=== PATIENT | male | born 1935 | race Caucasian/White ===

== ENCOUNTER → 2016-07-08 | Outpatient (CLI) | payer MEDICARE, BC ==
[~2016-07-08] MED LIST: AMLO10TA2 PO; ASPI-110 PO; CALC500C2 CHEW; CASO50TA2 PO; CLIN1CAP6 PO; ENZA40CA PO; FENT75DI T-DERMAL; FURO20TA PO; LANTINJ SQ; LIPI10TA PO; METO25TA3 PO; METO50TA PO; MORP15TA73 PO; MORP1TAB24 PO; NOVOINJ SQ; NOVOLOGP2 SQ; NOVORP2 SQ; OMEP20TA PO; OXYC15TA PO; OXYC1TAB36 PO; PROC10TA PO; WHEEMIS3; ZYTI250T PO; accucheck; needles; test strips; wheelchair
== END ==
LOC: PLAB 08:25
PROVIDERS: ATTEND Urology
DX: C61 Malignant neoplasm of prostate (principal)
CPT/HCPCS: 36415; 84153; 84403

== ENCOUNTER → 2016-07-20 | Day surgery (SDC) | payer MEDICARE, BC ==
[~2016-07-20] MED LIST changes: +ASPI81CH3 CHEW; +DOCU100C PO; +LACTATED RINGER'S 1,000 ML BAG IV ONE; +OXYC-396 PO; +POLY150C2 PO; +PROPOFOL 200 MG/20 ML AMP IV ONE
== END | disposition home or self-care (01) ==
LOC: ESDC 07:00
PROVIDERS: ATTEND Internal Medicine Gastroenterology
DX: K31.5 Obstruction of duodenum (principal); K44.9 Diaphragmatic hernia without obstruction or gangrene; K29.80 Duodenitis without bleeding; K29.70 Gastritis, unspecified, without bleeding; E11.9 Type 2 diabetes mellitus without complications; Z79.4 Long term (current) use of insulin
CPT/HCPCS: 00740; 43239; 43245; 82948; 88305; 88312; C1726; J3010; J7120

== ENCOUNTER → 2016-09-09 | Outpatient (CLI) | payer MEDICARE, BC ==
[~2016-09-09] MED LIST changes: +BACT800T5 PO; +CIPR250T52 PO; -LACTATED RINGER'S 1,000 ML BAG IV ONE; +PANT40TA3 PO; -PROPOFOL 200 MG/20 ML AMP IV ONE
== END ==
LOC: PLAB 09:06
PROVIDERS: ATTEND Urology
DX: C61 Malignant neoplasm of prostate (principal)
CPT/HCPCS: 36415; 84153

== ENCOUNTER 2016-12-08 20:09 | Inpatient (IN) | payer MEDICARE, BC ==
[~2016-12-08] VITALS: Ht 188 cm; Wt 122.5 kg
[2016-12-08] VITALS (9 sets, daily range): BP systolic 108–145; BP diastolic 61–76; PULSE 86–125; RESP 18–20; TEMP 99.2–99.9; O2SAT 2–96
[~2016-12-08 20:09] MED LIST changes: -ASPI81CH3 CHEW; -BACT800T5 PO; -CALC500C2 CHEW; -CIPR250T52 PO; -DOCU100C PO; -ENZA40CA PO; -METO25TA3 PO; -MORP15TA73 PO; -MORP1TAB24 PO; -OXYC-396 PO; -OXYC1TAB36 PO; -PANT40TA3 PO; -POLY150C2 PO; -PROC10TA PO
[2016-12-08] MEDS ORDERED: SODIUM CHLORIDE 0.9% FLUSH 10 ML FLUSH IVF PRN ×4 (20:30→22:30)
[2016-12-08] MEDS ORDERED: DILTIAZEM HCL 25 MG/5 ML VIAL IV ONE (21:00)
[2016-12-08] MEDS ORDERED: ACETAMINOPHEN 325 MG TAB PO ONE (21:00)
[2016-12-08 21:12] LABS: AUTOMATED NEUTROPHIL # 9.6 TH/MM3 (1.8-7.7); BASOPHIL # 0.4 TH/MM3 (0-0.2); BASOPHIL % 3.9 % (0.0-2.0); EOSINOPHIL % 0.2 % (0.0-4.0); LYMPH % 4.1 % (9.0-44.0); LYMPHOCYTE # 0.5 TH/MM3 (1.0-4.8); MEAN CELL VOLUME 68.9 FL (80.0-100.0); MEAN CORPUSCULAR HEMOGLOBIN 21.9 PG (27.0-34.0); MEAN CORPUSCULAR HGB CONC 31.8 % (32.0-36.0); MONO % 7.5 % (0.0-8.0); NEUT % 84.3 % (16.0-70.0); PLATELET COUNT 318 TH/MM3 (150-450); RED BLOOD COUNT 4.34 MIL/MM3 (4.50-5.90); RED CELL DISTRIBUTION WIDTH 17.4 % (11.6-17.2); WHITE BLOOD COUNT 11.3 TH/MM3 (4.0-11.0)
[2016-12-08 21:16] LABS: CHLORIDE 102 MEQ/L (98-107); HEMO FLAGS AUTO DIFF; SODIUM (NA) 138 MEQ/L (136-145)
[2016-12-08 21:24] LABS: APTT (PATIENT) 35.5 SEC (24.3-30.1); INTERNATIONAL NORMALIZED RATIO 1.3 RATIO; PROTHROMBIN TIME - PATIENT 14.6 SEC (9.8-11.6)
[2016-12-08 21:27] LABS: ALKALINE PHOSPHATASE 349 U/L (45-117); ALT (GPT) 9 U/L (12-78); ANION GAP 13 MEQ/L (5-15); AST (GOT) 31 U/L (15-37); BLOOD UREA NITROGEN 25 MG/DL (7-18); GLOMERULAR FILTRATION RATE 39 ML/MIN (>89); MAGNESIUM 1.5 MG/DL (1.5-2.5); TOTAL BILIRUBIN ADULT 0.4 MG/DL (0.2-1.0)
[2016-12-08 21:28] LABS: CREATINE KINASE 69 U/L (39-308)
[2016-12-08] MEDS ORDERED: MORP1TAB24 PO (21:40)
[2016-12-08] MEDS ORDERED: OXYC1TAB36 PO (21:40)
[2016-12-08] MEDS ORDERED: PROC10TA PO (21:40)
[2016-12-08] MEDS ORDERED: METO25TA3 PO (21:40)
[2016-12-08] MEDS: SODIUM CHLOR 0.9% 1000 ML INJ 1,000 ML IV SCH (21:42)
[2016-12-08 21:45] LABS: OVALOCYTES 1+ (NORMAL); SCAN/DIFF AUTO DIFF CONFIRMED; TEARDROP RBCS 1+ (NORMAL)
[2016-12-08] MEDS ORDERED: CALC500C2 CHEW (21:52)
[2016-12-08] MEDS ORDERED: ENZA40CA PO (21:52)
--- NOTE | 2016-12-08 21:54 | PD ---
HPI Chief Complaint: Fall Time Seen by Provider: 20:23 Travel History International Travel<30 days: No Contact w/Intl Traveler<30days: No Traveled to known affect area: No History of Present Illness HPI 81-year-old male presents to the emergency department from home by EMS transport for evaluation of generalized weakness with fall. 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 Patient has previously been under the care of Dr. Lay and was on Lupron therapy however appeared to feel therapy or recently was put under the care of oncologist Dr. Marcos who states that patient is not a candidate for chemotherapy; Patient is taking Xtandi and Casadex. and patient had discussed hospice but has not yet been admitted to the service. notes that patient is increasingly weak such that more recently she has had to assist him with lifting of his right leg to help him to get into bed over the past few days. Patient uses a walker at all times. Today patient was up out of bed to go to the bathroom and transferring from the walker to using a piece of furniture to support him when his legs gave way causing him to fall to the floor between the wall and the bed. Patient was unable to get up with attempt at assistance or on his own therefore far rescue was called to help him get up off the floor. Patient did not hit his head did not injure his neck or back stating he has no spine pain but did note that he had some bruising to the back area which she states is nontender. Patient did not injure his upper or lower extremities. Patient denies any chest pain palpitations rib pain shortness of breath pleuritic pain or abdominal pain. Patient reports that he is unable to lift his right leg at this time due to the worsening weakness over the past few days and specifically today it is only minimally able to lift his left lower extremity. Patient does not complain of new paresthesias to the lower extremities has not had any bladder or bowel dysfunction and denies saddle anesthesia as well as denies any low back pain. Patient's overall discomfort is rated as 0/10. Patient and spouse also deny any recent febrile illness headache visual disturbance sinus pressure drainage sore throat earache neck pain cough congestion phlegm production shortness of breath chest pain abdominal pain nausea vomiting diarrhea dysuria frequency urgency decreased urine output joint pain swelling or skin rash. Patient does not take any blood thinning agents. Patient reports that he has noticed increasing weakness 3 weeks since recent change in medication but cannot recall which medication was changed; reports stopped Zytiga and started Xtandi. PFSH Past Medical History Narrative Medical Basal cell carcinoma PAD/claudication diabetes tremor vertigo basal cell carcinoma skin*arthritis for obesity and diabetes with diabetic neuropathy atrial fibrillation UTI squamous cell carcinomas of the cheek chronic sinusitis metastatic prostate cancer bladder cancer left hydronephrosis right nephrectomy dyslipidemia hypertension chronic kidney disease bladder cancer; no tobacco use ; nursing notes reviewed Arthritis: Yes Cancer: Yes (PROSTATE,BLADDER, ABDOMINAL TUMOR, BONE) Cardiovascular Problems: No High Cholesterol: Yes Chemotherapy: Yes (oral) Diabetes: Yes Patient Takes Glucophage: No Diminished Hearing: No Endocrine: Yes Genitourinary: Yes (radiation shrunk one kidney due to abd tumor) Hepatitis: No Hiatal Hernia: No Hypertension: Yes Immune Disorder: No Implanted Vascular Access Dvce: Yes (NERVE STIMULATOR ON L BACK, NOT WORKING) Musculoskeletal: Yes (CHRONIC BACK PAIN) Neurologic: No Psychiatric: No Reproductive: No Respiratory: Yes (SLEEP APNEA/CPAP) Radiation Therapy: Yes Sleep Apnea: Yes Tetanus Vaccination: < 5 Years Influenza Vaccination: Yes Past Surgical History Abdominal Surgery: Yes (ABDOMINAL TUMOR 13 POUNDS REMOVED FOR CA) AICD: No Body Medical Devices: STIMULATOR FOR BACK PAIN ([employer]) Cardiac Surgery: No Ear Surgery: No Endocrine Surgery: No Eye Surgery: No Genitourinary Surgery: Yes (prostectomy) Gynecologic Surgery: No Joint Replacement: Yes (bilat knee replacement) Oral Surgery: No Pacemaker: No Prostatectomy: Yes (1991) Thoracic Surgery: No Tonsillectomy: Yes Other Surgery: Yes (PROSTATECTOMY) Social History Alcohol Use: Yes (OCCASSIONALLY) Tobacco Use: No Substance Use: No Allergies-Medications (Allergen,Severity, Reaction): Coded Allergies: Codeine (Verified Allergy, Severe, Anaphylaxis, 12/08/16) *MDRO Multi-Drug Resistant Organism (Unverified Allergy, Unknown, 12/08/16) MRSA 2013 Reported Meds & Prescriptions Reported Meds & Active Scripts Active Lantus Solostar Pen Inj (Insulin Glargine) 300 Unit/3 Ml Pen 60 Units SQ HS Wheelchair (Device) 1 Mis Mis 1 Ea .ROUTE DIRECTED Lipitor (Atorvastatin Calcium) 10 Mg Tab 10 Mg PO HS Omeprazole 20 Mg Tab 20 Mg PO DAILY Furosemide 20 Mg Tab 20 Mg PO DAILY Amlodipine (Amlodipine Besylate) 10 Mg Tab 10 Mg PO DAILY Reported Xtandi (Enzalutamide) 40 Mg Cap 160 Mg PO DAILY Calcium (Calcium Carbonate-Cholecalciferol) 1,250-100 Mg-Unit Chew 1,000 Mg CHEW DAILY Prochlorperazine Maleate 10 Mg Tab 10 Mg PO Q6H PRN Morphine ER (Morphine Sulfate) 15 Mg Tab 15 Mg PO Q8H PRN Oxycodone-Acetaminophen 10-325 mg Tab 1 Tab PO BID Metoprolol Tartrate 25 Mg Tab 25 Mg PO BID Fentanyl Patch 72 HR (Fentanyl) 75 Mcg/Hr Patch 75 Mcg T-DERMAL Q72H Remove old patch when new one placed. Novolog Penfill Inj (Insulin Aspart) 300 Unit/3 Ml Pen 40 Units SQ TIDAC PRN Novolin R Inj (Insulin Human Regular) 1,000 Unit/10 Ml Vial 0 SQ DIRECTED 0-149 = 0 Novolin R 150-199 = 5U 200-249 = 7U 250-299 = 10U 300-349 = 12U >349 = 15U Casodex (Bicalutamide) 50 Mg Tab 50 Mg PO DAILY Hazardous agent; use appropriate precautions for handling & disposal. Review of Systems Except as stated in HPI: all other systems reviewed are Neg General / Constitutional: No: Fever, Chills HENT: No: Headaches, Sore Throat, Congestion, Neck Pain, Earache Cardiovascular: Positive: Edema, No: Chest Pain or Discomfort, Palpitations, Diaphoresis, Syncope, Dyspnea on exertion Respiratory: No: Cough, Shortness of Breath, Wheezing Gastrointestinal: No: Nausea, Vomiting, Diarrhea, Abdominal Pain Genitourinary: No: Dysuria, Flank Pain Musculoskeletal: Positive: Weakness, Edema, No: Myalgias, Arthralgias, Pain Skin: No Rash Neurologic: Positive: Weakness, Focal Abnormalities (BLE), Coordination Problem , No: Dizziness, Syncope, Headache, Change in Mentation, Paresthesia, Incontinence, Seizures Psychiatric: No: Anxiety Endocrine: No: Heat Intolerance Hematologic/Lymphatic: Positive: Easy Bruising Physical Exam Narrative GENERAL: Well-developed well-nourished male in no acute distress no respiratory distress; GCS 15 SKIN: Warm and dry. Small skin tear to right upper extremity large ecchymotic area to right to midline lower back nontender to palpation. HEAD: Atraumatic. Normocephalic. EYES: Pupils equal and round. No scleral icterus. No injection or drainage. ENT: No nasal bleeding or discharge. Mucous membranes pink and moist. NECK: Trachea midline. No JVD. CARDIOVASCULAR: Regular rate and rhythm. RESPIRATORY: No accessory muscle use. Clear to auscultation. Breath sounds equal bilaterally. GASTROINTESTINAL: Abdomen soft, non-tender, nondistended. Hepatic and splenic margins not palpable. MUSCULOSKELETAL: Extremities without clubbing, cyanosis, BLE edema. No obvious deformities. Cervical thoracic lumbar spine nontender to direct palpation no bony step-off. NEUROLOGICAL: Awake and alert. No obvious cranial nerve deficits. Motor grossly within normal limits. Five out of 5 muscle strength in the arms; RLE 21/ 5 LLE 2-3/5 legs. Normal speech. PSYCHIATRIC: Appropriate mood and affect; insight and judgment normal. Data Data Last Documented VS Vital Signs Date Time Temp Pulse Resp B/P Pulse Ox O2 Delivery O2 Flow Rate FiO2 12/08/16 22:07 97 18 113/67 94 Nasal Cannula 2 12/08/16 20:59 99.9 Orders Electrocardiogram (12/08/16 20:23) Complete Blood Count With Diff (12/08/16 20:23) Comprehensive Metabolic Panel (12/08/16 20:23) Magnesium (Mg) (12/08/16 20:23) B-Type Natriuretic Peptide (12/08/16 20:23) Ckmb (Isoenzyme) Profile (12/08/16 20:23) Troponin I (12/08/16 20:23) Act Partial Throm Time (Ptt) (12/08/16 20:23) Prothrombin Time / Inr (Pt) (12/08/16 20:23) Urinalysis - C+S If Indicated (12/08/16 20:23) Chest, Single Ap (12/08/16 20:23) Blood Glucose (12/08/16 20:23) Ecg Monitoring (12/08/16 20:23) Iv Access Insert/Monitor (12/08/16 20:23) Oximetry (12/08/16 20:23) Sodium Chloride 0.9% Flush (Ns Flush) (12/08/16 20:30) Lactic Acid (12/08/16 20:23) Blood Culture (12/08/16 20:23) Ct Brain W/O Iv Contrast(Rout) (12/08/16 ) Hip, Uni(Ap&Lat) W Ap Pelvis (12/08/16 ) Sodium Chloride 0.9% Flush (Ns Flush) (12/08/16 21:00) Diltiazem Inj (Cardizem Inj) (12/08/16 21:00) Sodium Chlor 0.9% 1000 Ml Inj (Ns 1000 M (12/08/16 21:00) Acetaminophen (Tylenol) (12/08/16 21:00) Diltiazem Inj (Cardizem Inj) (12/08/16 22:00) Sodium Chloride 0.9% Flush (Ns Flush) (12/08/16 22:00) Ceftriaxone Inj (Rocephin Inj) (12/08/16 22:00) Calcium Gluconate (Calcium Gluconate) (12/08/16 22:30) Calcium Gluconate Inj (Calcium Gluconate (12/08/16 22:30) Vital Signs (Adult) Q4H (12/08/16 22:23) Activity Oob With Assistance (12/08/16 22:23) Receptionist/Telephone Operator / Telemetry .CONTINUOUS (12/08/16 22:23) Diet Heart Healthy (12/09/16 Breakfast) Sodium Chloride 0.9% Flush (Ns Flush) (12/08/16 22:30) Sodium Chloride 0.9% Flush (Ns Flush) (12/09/16 09:00) Basic Metabolic Panel (Bmp) (12/09/16 06:00) Complete Blood Count With Diff (12/09/16 06:00) Pt Request For Service (12/08/16 22:23) Case Management Consult (12/08/16 22:23) Naloxone Inj (Narcan Inj) (12/08/16 22:30) Consult Palliative Care (12/08/16 ) Admit Order (Ed Use Only) (12/08/16 ) ^ Saline Lock (12/08/16 22:25) Resp Oxygen Frank C Titrat 1-4 L (12/08/16 ) Notify Dr: Other (12/08/16 22:25) Sodium Chloride 0.9% Flush (Ns Flush) (12/09/16 09:00) Sodium Chloride 0.9% Flush (Ns Flush) (12/08/16 22:30) Labs Laboratory Tests Test 12/08/16 12/08/16 20:48 20:50 White Blood Count 11.3 TH/MM3 Red Blood Count 4.34 MIL/MM3 Hemoglobin 9.5 GM/DL Hematocrit 30.0 % Mean Corpuscular Volume 68.9 FL Mean Corpuscular Hemoglobin 21.9 PG Mean Corpuscular Hemoglobin 31.8 % Concent Red Cell Distribution Width 17.4 % Platelet Count 318 TH/MM3 Mean Platelet Volume 7.9 FL Neutrophils (%) (Auto) 84.3 % Lymphocytes (%) (Auto) 4.1 % Monocytes (%) (Auto) 7.5 % Eosinophils (%) (Auto) 0.2 % Basophils (%) (Auto) 3.9 % Neutrophils # (Auto) 9.6 TH/MM3 Lymphocytes # (Auto) 0.5 TH/MM3 Monocytes # (Auto) 0.8 TH/MM3 Eosinophils # (Auto) 0.0 TH/MM3 Basophils # (Auto) 0.4 TH/MM3 CBC Comment AUTO DIFF Differential Comment AUTO DIFF CONFIRMED Tear Drop Cells 1+ Ovalocytes 1+ Prothrombin Time 14.6 SEC Prothromb Time International 1.3 RATIO Ratio Activated Partial 35.5 SEC Thromboplast Time Sodium Level 138 MEQ/L Potassium Level 4.0 MEQ/L Chloride Level 102 MEQ/L Carbon Dioxide Level 23.0 MEQ/L Anion Gap 13 MEQ/L Blood Urea Nitrogen 25 MG/DL Creatinine 1.70 MG/DL Estimat Glomerular Filtration 39 ML/MIN Rate Random Glucose 219 MG/DL Calcium Level 6.5 MG/DL Protein Corrected Calcium 7.0 MG/DL Magnesium Level 1.5 MG/DL Total Bilirubin 0.4 MG/DL Aspartate Amino Transf 31 U/L (AST/SGOT) Alanine Aminotransferase 9 U/L (ALT/SGPT) Alkaline Phosphatase 349 U/L Total Creatine Kinase 69 U/L Troponin I LESS THAN 0.02 NG/ML B-Type Natriuretic Peptide 182 PG/ML Total Protein 6.1 GM/DL Albumin 1.9 GM/DL Lactic Acid Level 2.5 mmol/L MDM Medical Decision Making Medical Screen Exam Complete: Yes Emergency Medical Condition: Yes Medical Record Reviewed: Yes Interpretation(s) EKG: Atrial fibrillation with rapid ventricular response with no acute ST elevation or injury pattern change rate 100 CBC & BMP Diagram 12/08/16 20:48 Calcium/PCC: 7.0 lactic acid: 2.5, elevated cx: tortuous aorta Last Impressions Head CT 12/08/16 0000 Signed Impressions: Service Date/Time: Thursday, December 08, 2016 21:10 - CONCLUSION: Normal examination for a patient of this age. No significant change has occurred. Hilton Coe MD Differential Diagnosis Generalized weakness, arrhythmia, electrolyte disturbance, UTI, sepsis, anemia, pathologic fracture, TIA, CVA, ICH, adverse medication reaction Narrative Course Patient placed on teletypesetter monitor found to be in atrial fibrillation with rapid ventricular response between 122 and 97 bpm; EKG performed which reveals atrial fibrillation with RVR but no acute injury pattern change patient temperature is noted be 99.9F blood pressure stable; blood cultures and lactic Obtained; patient administered acetaminophen weight-based. Patient remains tachycardic therefore Cardizem administered for rate control Patient identified to have hypocalcemia protein and corrected 7.0 Afib with RVR rate controlled with dose of cardizem iv case discussed with [facility] MD Dr Grant --patient and spouse aware of plan for admission; does not meet sirs or sepsis criteria; but suspect UTI, UA pending, and administered Rocephin presumptively. Sepsis Criteria SIRS Criteria (2 or more): Heart rate over 90 Physician Communication Physician Communication discussed with Dr Grant for admission Diagnosis Primary Impression: Generalized weakness Additional Impressions: Hypocalcemia Atrial fibrillation with RVR Prostate cancer metastatic to bone Diabetes Admitting Information Admitting Physician Requests: Observation Misty Conde MD Dec 08, 2016 21:54
[2016-12-08] MEDS ORDERED: cefTRIAXone INJ 1,000 MG in SODIUM CHLORIDE 0.9% INJ 100 ML IV ONE (22:00)
[2016-12-08] MEDS ORDERED: DILTIAZEM INJ 125 MG in SODIUM CHLORIDE 0.9% INJ 100 ML IV SCH (22:00)
--- NOTE | 2016-12-08 22:05 | RADHPO ---
EXAM DATE/TIME: 12/08/2016 21:10 [facility] COMPARISON: CT BRAIN W/O CONTRAST, December 08, 2013, 14:55. INDICATIONS : Fall. Weakness. RADIATION DOSE: 64.97 CTDIvol (mGy) MEDICAL HISTORY : Diabetes mellitus type 2. Hypertension. Carcinoma, bone. SURGICAL HISTORY : None. ENCOUNTER: Initial ACUITY: 1 day PAIN SCALE: 0/10 LOCATION: cranial TECHNIQUE: Multiple contiguous axial images were obtained of the head. Using automated exposure control and adj ustment of the mA and/or kV according to patient size, radiation dose was kept as low as reasonably a chievable to obtain optimal diagnostic quality images. FINDINGS: CEREBRUM: The ventricles are normal for age. No evidence of midline shift, mass lesion, hemorrhage or acute in farction. No extra-axial fluid collections are seen. POSTERIOR FOSSA: The cerebellum and brainstem are intact. The 4th ventricle is midline. The cerebellopontine angle i s unremarkable. EXTRACRANIAL: The visualized portion of the orbits is intact. SKULL: The calvaria is intact. No evidence of skull fracture. CONCLUSION: Normal examination for a patient of this age. No significant change has occurred. Hilton Coe MD on December 08, 2016 at 22:02 Board Certified Radiologist. This report was verified electronically.
[2016-12-08] MEDS ORDERED: NALOXONE HCL 0.4 MG/ML AMP IV PRN (22:30)
[2016-12-08] MEDS ORDERED: CALCIUM GLUCONATE 500 MG TAB PO ONE (22:30)
[2016-12-08] MEDS ORDERED: CALCIUM GLUCONATE INJ 1 GM in DEXTROSE 5% IN WATER 100ML INJ 100 ML IV ONE ×2 (22:30)
--- NOTE | 2016-12-08 22:42 | RADHPO ---
EXAM DATE/TIME: 12/08/2016 20:46 [facility] COMPARISON: CHEST SINGLE AP, December 11, 2013, 5:54. INDICATIONS : Palpitations. MEDICAL HISTORY : Carcinoma, bone. SURGICAL HISTORY : None. ENCOUNTER: Initial ACUITY: 1 day PAIN SCORE: 1/10 LOCATION: Bilateral chest FINDINGS: Heart is mildly enlarged. Stimulator wires overlying the thoracic spine. No significant consolidation or effusion. No pneumothorax. Minimal basilar scarring. CONCLUSION: 1. Minimal basilar scarring. No significant effusion. No pneumothorax. Tortuous aorta. Hilton Coe MD on December 08, 2016 at 22:39 Board Certified Radiologist. This report was verified electronically.
--- NOTE | 2016-12-08 22:44 | RADHPO ---
EXAM DATE/TIME: 12/08/2016 21:13 [facility] COMPARISON: No previous studies available for comparison. INDICATIONS : Right hip pain post fall. MEDICAL HISTORY : Carcinoma, bone. SURGICAL HISTORY : Abdominal tumor removed. ENCOUNTER: Initial ACUITY: 1 day PAIN SCORE: 7/10 LOCATION: Right hip. FINDINGS: There are numerous sclerotic bone metastases to the bony pelvis and proximal femora, worse on the rig ht side. No pathologic fracture is identified at this time. Left ureteral stent present with tip over lying the bladder. Multiple surgical clips in the pelvis. CONCLUSION: 1. Extensive bony metastatic disease especially to proximal right femur. No definite fracture identif ied. Hilton Coe MD on December 08, 2016 at 22:40 Board Certified Radiologist. This report was verified electronically.
[2016-12-08 22:54] LABS: BLOOD, URINE LARGE (NEG); GLUCOSE,URINE NEG (NEG); KETONE, URINE NEG (NEG); NITRITE,URINE NEG (NEG)
[2016-12-08 22:59] LABS: BACTERIA, URINE FEW /hpf; RBC, URINE 100-200 /hpf (0-3); SQUAMOUS EPITHELIAL CELL URINE 0-5 /hpf (0-5); URINE COLOR YELLOW (YELLW/STRAW); WBC, URINE INNUM /hpf (0-5)
[2016-12-08 23:00] LABS: COMMENT (UR) CULTURE INDICATED; CULTURE IF INDICATED CULTURE INDICATED
[2016-12-09] VITALS (11 sets, daily range): BP systolic 117–144; BP diastolic 64–83; PULSE 96–133; RESP 18–20; TEMP 96.6–99.2; O2SAT 92–96
[2016-12-09] MEDS: SODIUM CHLORIDE 0.9% FLUSH 10 ML FLUSH IV FLUSH PRN ×2 (00:48→02:05)
[2016-12-09 00:52] LABS: POTASSIUM 3.8 MEQ/L (3.5-5.1)
[2016-12-09 01:00] LABS: BICARBONATE 25.3 MEQ/L (21.0-32.0); MAGNESIUM 1.5 MG/DL (1.5-2.5)
[2016-12-09] MEDS ORDERED: CALCIUM GLUCONATE 10% 1 GM/10 ML VIAL IV PUSH ONE (01:15)
[2016-12-09] MEDS: MORPHINE SULFATE 15 MG TAB PO PRN ×3 (01:36→15:03)
[2016-12-09 01:52] LABS: CALCIUM-PROTEIN CORRECTED 7.2 MG/DL (8.5-10.1)
[2016-12-09] MEDS ORDERED: CALCIUM GLUCONATE INJ 2 GM in SODIUM CHLORIDE 0.9% INJ 100 ML IV ONE ×2 (02:00→09:00)
[2016-12-09] MEDS ORDERED: DEXTROSE 50% IN WATER 50 ML VIAL(D50) IV PRN (03:30)
[2016-12-09] MEDS ORDERED: GLUCAGON 1 MG/ML VIAL OTHER PRN (03:30)
--- NOTE | 2016-12-09 06:44 | EKG ---
Date Performed: 12/08/2016 Time Performed: 20:43:13 PTAGE: 81 years EKG: ATRIAL FIBRILLATION LEFT AXIS DEVIATION LOW QRS VOLTAGE IN THE LIMB LEADS ABNORMAL ECG PREVIOUS TRACING : 12/11/2013 23.45 No significant change from previous tracing noted. DOCTOR: Stewart Cutler Interpretating Date/Time 12/09/2016 06:43:54
[2016-12-09 06:49] LABS: AUTOMATED NEUTROPHIL # 6.5 TH/MM3 (1.8-7.7); BASOPHIL % 0.4 % (0.0-2.0); EOSINOPHIL % 0.4 % (0.0-4.0); HEMATOCRIT 29.3 % (39.0-51.0); LYMPH % 14.6 % (9.0-44.0); LYMPHOCYTE # 1.2 TH/MM3 (1.0-4.8); MEAN CELL VOLUME 70.1 FL (80.0-100.0); MEAN CORPUSCULAR HEMOGLOBIN 21.6 PG (27.0-34.0); MEAN CORPUSCULAR HGB CONC 30.8 % (32.0-36.0); NEUT % 76.6 % (16.0-70.0); PLATELET COUNT 291 TH/MM3 (150-450); RED BLOOD COUNT 4.18 MIL/MM3 (4.50-5.90); RED CELL DISTRIBUTION WIDTH 17.8 % (11.6-17.2); WHITE BLOOD COUNT 8.4 TH/MM3 (4.0-11.0)
[2016-12-09 06:53] LABS: POTASSIUM 3.8 MEQ/L (3.5-5.1)
[2016-12-09] MEDS: INSULIN ASPART SUPPLEMENTAL SCALE SQ SCH ×4 (07:00→21:00)
[2016-12-09 07:03] LABS: HEMO FLAGS AUTO DIFF
[2016-12-09 07:09] LABS: BICARBONATE 23.4 MEQ/L (21.0-32.0)
[2016-12-09 07:29] LABS: OVALOCYTES 1+ (NORMAL); ROULEAUX PRESENT (NORMAL)
[2016-12-09 07:30] LABS: SCAN/DIFF AUTO DIFF CONFIRMED
[2016-12-09 07:35] LABS: CALCIUM-PROTEIN CORRECTED 7.1 MG/DL (8.5-10.1)
--- NOTE | 2016-12-09 07:48 | HHI.HP ---
[facility] Margarita Heard MD Admission Diagnosis Generalized weakness; hypocalcemia; AFRVR Diagnoses: (1) Generalized weakness Diagnosis: Principal (2) Hypocalcemia Diagnosis: Principal (3) UTI (lower urinary tract infection) Diagnosis: Principal (4) Prostate cancer metastatic to bone Diagnosis: Principal (5) Atrial fibrillation with RVR Diagnosis: Secondary (6) Diabetes Diagnosis: Secondary (7) Chronic kidney disease, stage 3 Diagnosis: Secondary Chief Complaint: Generalized weakness Travel History International Travel<30 Days: No Contact w/Intl Traveler <30 Da: No Traveled to Known Affected Are: No Sepsis Criteria SIRS Criteria (2 or more): Heart rate over 90 Sepsis Criteria (SIRS+source): Infect source susp/known Severe Sepsis (+one): Lactate >2 History of Present Illness Written by Cj Sharma, acting as scribe for Dr. Ayers on 12/09/16 at 11: 11. 81-year-old rather unfortunate male with known history of prostate cancer with metastasis who is undergoing outpatient management by urology and oncology Dr. Marcos. Patient is undergoing chemotherapy at this time. However patient states that he is had increased weakness over the last few weeks. He has fallen at least 3 times where he fallen off the bed against the wall where he was unable to get up on his own. He indicates that his is been trying to help him however yesterday when he fell his was unable to get him back up again. Patient was brought to the hospital for evaluation and found to have multiple etiologies which could cause his profound weakness to include tachycardia, metastatic cancer, hypocalcemia, progression of disease, urinary tract infection. Patient was admitted the hospital for further evaluation management. Upon talking to the patient today. He does admit to progressive weakness with recurrent falls. He does understand that he has been told that his condition is untreatable. He is evaluating the possibility of hospice. This time patient does want to undergo hospice evaluation. He does not want to remain in the hospital any longer than he has to. Review of Systems Constitutional: DENIES: Diaphoretic episodes, Fatigue, Fever, Weight gain, Weight loss, Chills, Dizziness, Change in appetite, Night Sweats Endocrine: DENIES: Heat/cold intolerance, Polydipsia, Polyuria, Polyphagia Eyes: DENIES: Blurred vision, Diplopia, Eye inflammation, Eye pain, Vision loss , Double Vision Ears, nose, mouth, throat: DENIES: Hearing loss, Nasal discharge, Throat pain, Ear Pain, Running Nose, Sinus Pain Respiratory: DENIES: Apneas, Cough, Snoring, Wheezing, Hemoptysis, Sputum production, Shortness of breath Cardiovascular: DENIES: Chest pain, Palpitations, Syncope, Dyspnea on Exertion , Lower Extremity Edema, Orthopnea Gastrointestinal: DENIES: Abdominal pain, Black stools, Bloody stools, Constipation, Diarrhea, Nausea, Vomiting, Difficulty Swallowing, Anorexia Integumentary: DENIES: Abnormal pigmentation, Nail changes, Pruritus, Rash Hematologic/lymphatic: DENIES: Bruising, Lymphadenopathy Immunologic/allergic: DENIES: Eczema, Urticaria Neurologic: COMPLAINS OF: Poor Balance, DENIES: Abnormal gait, Headache, Localized weakness, Paresthesias, Seizures, Speech Problems, Tremor Psychiatric: COMPLAINS OF: Agitation, DENIES: Anxiety, Confusion, Mood changes , Depression Past Family Social History Past Medical History Atrial fibrillation with CHADS/VASC 5 Hypertension Diabetes Hyperlipidemia Chronic kidney disease stage III Peripheral vascular disease right lower extremity History of basal cell carcinoma Squamous cell carcinoma Left hydronephrosis Chronic anemia History of shingles History of back pain Bladder cancer Prostate cancer with metastasis to the bone Past Surgical History Right nephrectomy with tumor resection Prostatectomy Right wrist fracture Left knee replacement Nephrostomy tube placement Ureter stent EGD with biopsy Reported Medications Reported Meds & Active Scripts Active Lantus Solostar Pen Inj (Insulin Glargine) 300 Unit/3 Ml Pen 60 Units SQ HS Wheelchair (Device) 1 Mis Mis 1 Ea .ROUTE DIRECTED Lipitor (Atorvastatin Calcium) 10 Mg Tab 10 Mg PO HS Omeprazole 20 Mg Tab 20 Mg PO DAILY Furosemide 20 Mg Tab 20 Mg PO DAILY Amlodipine (Amlodipine Besylate) 10 Mg Tab 10 Mg PO DAILY Reported Xtandi (Enzalutamide) 40 Mg Cap 160 Mg PO DAILY Calcium (Calcium Carbonate-Cholecalciferol) 1,250-100 Mg-Unit Chew 1,000 Mg CHEW DAILY Prochlorperazine Maleate 10 Mg Tab 10 Mg PO Q6H PRN Morphine ER (Morphine Sulfate) 15 Mg Tab 15 Mg PO Q8H PRN Oxycodone-Acetaminophen 10-325 mg Tab 1 Tab PO BID Metoprolol Tartrate 25 Mg Tab 25 Mg PO BID Fentanyl Patch 72 HR (Fentanyl) 75 Mcg/Hr Patch 75 Mcg T-DERMAL Q72H Remove old patch when new one placed. Novolog Penfill Inj (Insulin Aspart) 300 Unit/3 Ml Pen 40 Units SQ TIDAC PRN Novolin R Inj (Insulin Human Regular) 1,000 Unit/10 Ml Vial 0 SQ DIRECTED 0-149 = 0 Novolin R 150-199 = 5U 200-249 = 7U 250-299 = 10U 300-349 = 12U >349 = 15U Casodex (Bicalutamide) 50 Mg Tab 50 Mg PO DAILY Hazardous agent; use appropriate precautions for handling & disposal. 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 Patient drinks approximately one beer a week, denies any illicit drugs Physical Exam Vital Signs Vital Signs Date Time Temp Pulse Resp B/P Pulse Ox O2 Delivery O2 Flow Rate FiO2 12/09/16 07:39 93 Nasal Cannula 2.00 12/09/16 04:00 96.8 100 18 130/68 94 12/09/16 00:52 96.6 104 20 135/64 92 12/09/16 00:35 96 18 95 Nasal Cannula 12/08/16 23:50 107 18 128/68 94 Nasal Cannula 12/08/16 23:05 86 18 145/76 95 Nasal Cannula 2 12/08/16 22:54 94 Nasal Cannula 2.00 12/08/16 22:40 Nasal Cannula 2 12/08/16 22:07 97 18 113/67 94 Nasal Cannula 2 12/08/16 21:55 125 18 140/67 94 Nasal Cannula 12/08/16 21:45 91 Room Air 12/08/16 21:26 Room Air 12/08/16 21:15 109 20 108/61 96 Room Air 12/08/16 20:59 99.9 12/08/16 20:31 Room Air 12/08/16 20:15 99.2 122 20 113/62 Physical Exam GENERAL: Well-developed, well-nourished, in no acute distress. alert and orientated HEENT: Head is normocephalic without any lesions or masses noted. Facial features are symmetric. Eyes: Pupils equal round reactive to light. Extraocular muscles are intact. Conjunctivae were clear. Oropharyngeal: Pharynx without any erythema edema. Tongue is midline without deviation. Buccal mucosa is moist without any masses or lesions NECK: Supple without any masses. Trachea midline no deviation. No JVD, no bruits are appreciated CARDIAC: Regular rhythm, regular rate. S1/S2 are heard. No murmurs gallops or rubs. LUNGS: Clear to auscultation bilaterally. No wheeze, rhonchi or rales. No use of accessory muscles on inspiration or expiration. ABDOMEN: Soft, nontender. Nondistended. Bowel sounds heard in all 4 quadrants. No organomegaly or masses. Negative rebound, negative guarding EXTREMITIES: No edema, pulses are equal bilaterally. No cyanosis or clubbing NEUROLOGY: Mood and affect appear appropriate. Cranial nerves II through XII grossly intact. Muscle strength 5/5 in upper and lower extremities bilaterally. Deep tendon reflexes are 2+ in upper and lower extremities bilaterally. Laboratory Laboratory Tests Test 12/08/16 12/08/16 12/08/16 12/09/16 20:48 20:50 22:40 00:22 White Blood Count 11.3 Red Blood Count 4.34 Hemoglobin 9.5 Hematocrit 30.0 Mean Corpuscular Volume 68.9 Mean Corpuscular Hemoglobin 21.9 Mean Corpuscular Hemoglobin 31.8 Concent Red Cell Distribution Width 17.4 Platelet Count 318 Mean Platelet Volume 7.9 Neutrophils (%) (Auto) 84.3 Lymphocytes (%) (Auto) 4.1 Monocytes (%) (Auto) 7.5 Eosinophils (%) (Auto) 0.2 Basophils (%) (Auto) 3.9 Neutrophils # (Auto) 9.6 Lymphocytes # (Auto) 0.5 Monocytes # (Auto) 0.8 Eosinophils # (Auto) 0.0 Basophils # (Auto) 0.4 CBC Comment AUTO DIFF Differential Comment AUTO DIFF CONFIRMED Tear Drop Cells 1+ Ovalocytes 1+ Prothrombin Time 14.6 Prothromb Time International 1.3 Ratio Activated Partial 35.5 Thromboplast Time Sodium Level 138 138 Potassium Level 4.0 3.8 Chloride Level 102 102 Carbon Dioxide Level 23.0 25.3 Anion Gap 13 11 Blood Urea Nitrogen 25 24 Creatinine 1.70 1.70 Estimat Glomerular Filtration 39 39 Rate Random Glucose 219 212 Calcium Level 6.5 6.6 Protein Corrected Calcium 7.0 7.2 Magnesium Level 1.5 1.5 Total Bilirubin 0.4 Aspartate Amino Transf 31 (AST/SGOT) Alanine Aminotransferase 9 (ALT/SGPT) Alkaline Phosphatase 349 Total Creatine Kinase 69 Troponin I LESS THAN 0.02 B-Type Natriuretic Peptide 182 Total Protein 6.1 5.8 Albumin 1.9 Lactic Acid Level 2.5 Urine Color YELLOW Urine Turbidity CLOUDY Urine pH 6.0 Urine Specific [place] 1.016 Urine Protein 100 Urine Glucose (UA) NEG Urine Ketones NEG Urine Occult Blood LARGE Urine Nitrite NEG Urine Bilirubin NEG Urine Leukocyte Esterase MOD Urine RBC 100-200 Urine WBC INNUM Urine WBC Clumps FEW Urine Squamous Epithelial 0-5 Cells Urine Bacteria FEW Microscopic Urinalysis Comment CULTURE INDICATED Test 12/09/16 05:40 White Blood Count 8.4 Red Blood Count 4.18 Hemoglobin 9.0 Hematocrit 29.3 Mean Corpuscular Volume 70.1 Mean Corpuscular Hemoglobin 21.6 Mean Corpuscular Hemoglobin 30.8 Concent Red Cell Distribution Width 17.8 Platelet Count 291 Mean Platelet Volume 7.8 Neutrophils (%) (Auto) 76.6 Lymphocytes (%) (Auto) 14.6 Monocytes (%) (Auto) 8.0 Eosinophils (%) (Auto) 0.4 Basophils (%) (Auto) 0.4 Neutrophils # (Auto) 6.5 Lymphocytes # (Auto) 1.2 Monocytes # (Auto) 0.7 Eosinophils # (Auto) 0.0 Basophils # (Auto) 0.0 CBC Comment AUTO DIFF Differential Comment AUTO DIFF CONFIRMED Basophilic Stippling MOD Ovalocytes 1+ Rouleau PRESENT Sodium Level 139 Potassium Level 3.8 Chloride Level 104 Carbon Dioxide Level 23.4 Anion Gap 12 Blood Urea Nitrogen 24 Creatinine 1.60 Estimat Glomerular Filtration 42 Rate Random Glucose 160 Calcium Level 6.4 Protein Corrected Calcium 7.1 Total Protein 5.7 Date/Time Procedure Status Source Growth 12/08/16 22:40 Urine Culture Received Urine Clean Catch Pending 12/08/16 20:50 Aerobic Blood Culture Received Blood Peripheral Pending 12/08/16 20:50 Anaerobic Blood Culture Received Blood Peripheral Pending Result Diagram: 12/09/16 0540 12/09/16 0540 Imaging Last Impressions Chest X-Ray 12/08/162022 Signed Impressions: Service Date/Time: Thursday, December 08, 2016 20:46 - CONCLUSION: 1. Minimal basilar scarring. No significant effusion. No pneumothorax. Tortuous aorta. Hilton Coe MD Hip and Pelvis X-Ray 12/08/16 0000 Signed Impressions: Service Date/Time: Thursday, December 08, 2016 21:13 - CONCLUSION: 1. Extensive bony metastatic disease especially to proximal right femur. No definite fracture identified. Hilton Coe MD Head CT 12/08/16 0000 Signed Impressions: Service Date/Time: Thursday, December 08, 2016 21:10 - CONCLUSION: Normal examination for a patient of this age. No significant change has occurred. Hilton Coe MD Assessment and Plan Problem List: (1) UTI (lower urinary tract infection) ICD Code: N39.0 Status: Acute (2) Hypocalcemia ICD Code: E83.51 Status: Acute (3) Generalized weakness ICD Code: R53.1 Status: Acute (4) Diabetes ICD Code: E11.9 Status: Acute (5) Prostate cancer metastatic to bone ICD Code: C61 Status: Acute Assessment and Plan 81-year-old male with Generalized weakness with recurrent falls at home Multiple possible etiologies to include urinary tract infection, hypocalcemia, disease progression, deconditioning Physical therapy evaluation Hypocalcemia Continue monitor and replete as needed Urinary tract infection Patient does have history of complicated urinary tract infections Start cefepime and await culture for appropriate antibiotics Chronic atrial fibrillation, heart rate controlled at this time Continue home medications Hypertension, hyperlipidemia Continue home medications Diabetes Accu-Cheks with sliding scale insulin Prostate cancer with metastasis to the bone Patient is requesting hospice at this time Consulted case management per hospice consult DVT prevention Sequential compression devices Discharge disposition Discharge home with hospice if patient and family accepts care Activity: Ad sobeida. Diet: Healthy heart diet Medications per medication reconciliation Follow-up primary medical doctor one week Code Status Full code Discussed Condition With Patient Problem Qualifiers (1) Diabetes: Qualified Code: E11.8 - Type 2 diabetes mellitus with complication, with long- term current use of insulin Cj Sharma Dec 09, 2016 07:48 Gómez Ayers MD Dec 09, 2016 08:16
[2016-12-09] MEDS ORDERED: fentaNYL 75 MCG/HR PATCH T-DERMAL SCH (08:00)
[2016-12-09] MEDS ORDERED: SODIUM CHLORIDE 0.9% FLUSH 10 ML FLUSH IV FLUSH SCH (09:00)
[2016-12-09] MEDS: SODIUM CHLORIDE 0.9% FLUSH 10 ML FLUSH IV FLUSH SCH ×2 (09:00→21:02)
[2016-12-09] MEDS: cefTAZidime INJ 2,000 MG in SODIUM CHLORIDE 0.9% INJ 100 ML IV SCH ×2 (09:04→21:02)
[2016-12-09] MEDS: FUROSEMIDE 20 MG TAB PO SCH (09:04)
[2016-12-09] MEDS: METOPROLOL TARTRATE 25 MG TAB PO SCH ×2 (09:05→21:02)
[2016-12-09] MEDS: PANTOPRAZOLE SOD 20 MG DELAYED RELEASE TAB PO SCH ×2 (09:05→09:21)
[2016-12-09] MEDS: SODIUM CHLOR 0.9% 1000 ML INJ 1,000 ML IV SCH ×2 (10:20→17:23)
--- NOTE | 2016-12-09 18:52 | HHI.PR ---
Addendum to Inpatient Note Addendum Reason: Additional Documentation Additional Information Patient was seen by Hospice however he would like to proceed with medical management until seen by his Oncologist, Gómez Loomis MD Dec 09, 2016 18:52
[2016-12-09] MEDS: ATORVASTATIN 10 MG TAB PO SCH (21:02)
[2016-12-10] VITALS (8 sets, daily range): BP systolic 105–155; BP diastolic 69–85; PULSE 102–125; RESP 18–20; TEMP 97.2–99; O2SAT 91–98
--- NOTE | 2016-12-10 05:30 | MB ---
cc: EMILIANO FRANKS MD DATE OF 1935. DATE OF CONSULTATION December 09, 2016 REASON FOR CONSULTATION Patient with a history of metastatic prostate carcinoma who presents with progressive weakness. CHIEF COMPLAINT Weakness and feeling unwell. HISTORY OF PRESENT ILLNESS Mr. Heaton is an 81-year-old male who has a past medical history of Stage IV prostatic adenocarcinoma. He is being seen by Dr. Marcos who is an oncologist in the [facility]. The patient was diagnosed with Stage IV prostatic adenocarcinoma in 1990. He originally underwent prostatectomy. He had disease recurrence in 1998 involving his bladder. He was treated with hormone blockade therapy for quite some time. He tells me that he became resistant and was switched to is Zytiga. He has never received any chemotherapy. Recently he had disease progression and was switched to another oral medication. It is unclear which treatment he was on. The patient tells me that he has metastatic disease to the bone and there is apparently a mass in his bladder. He also has a history of right abdomen mass which was removed in 1998. 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 It is unclear whether this was a malignant mass. He presented to the [facility] with increased weakness which is progressive over the last few weeks. This coincides with a recent switch in his treatment. He says that he has fallen and he became so weak that he was unable to get out of his bed. He is chronically incontinent. He is being treated for a UTI. He was also anemic on admission with a hemoglobin of 9.5. Additionally, he was hypercalcemic. He has severely low albumin of 1.9. On admission the patient stated that he would like to consider hospice. However, he has changed his mind. He would like to follow up with oncology outpatient. The patient states that he would not like to go to rehab. Oncology has been consulted to make further recommendations. REVIEW OF SYSTEMS A comprehensive 12-point review of systems was completed which is negative except as described in the HPI. PAST MEDICAL HISTORY 1. Prostate adenocarcinoma. 2. Hypertension. 3. Hyperlipidemia. 4. Atrial fibrillation. 5. Chronic kidney disease Stage III. 6. Peripheral vascular disease. 7. History of basal cell carcinoma. 8. History of squamous cell carcinoma. 9. Left-sided hydronephrosis. PAST SURGICAL HISTORY 1. Right nephrectomy with tumor resection. 2. Prostatectomy. 3. Right wrist fracture. 4. Left knee replacement. 5. Nephrostomy tube placement. 6. Urethral stent. 7. EGD with biopsy. SOCIAL HISTORY He lives with his . He does not drink alcohol. No illicit drug use. FAMILY HISTORY Reviewed and noncontributory to this admission. MEDICATIONS 1. Lipitor 10 mg p.o. q. H.s. 2. Amlodipine 10 mg p.o. daily. 3. Furosemide 20 mg daily. 4. Lopressor 25 mg p.o. b.i.d. 5. Protonix 20 mg p.o. daily. 6. Duragesic 75 mcg q.72 hours. 7. Ceftazidime IV q.12 hours. 8. Sliding scale insulin. 9. Morphine sulfate 50 mg p.o. q.6 hours p.r.n. 10. Diltiazem drip. ALLERGIES HE IS ALLERGIC TO CODEINE. PHYSICAL EXAMINATION VITAL SIGNS: Blood pressure is 144/73, pulse is in the 100s, temperature is 99.2, O2 sats are 93% on 2 liters nasal cannula. GENERAL: Elderly male, chronically ill-appearing, in no apparent distress. Appears to be very weak and deconditioned. HEENT: Pupils are equal, round, react to light. EOMI. No oral thrush. No oral lesions. NECK: Supple. No JVD, no bruits. No lymphadenopathy. CHEST: Clear to auscultation bilaterally. CARDIAC: S1-S2, regular rate and rhythm. ABDOMEN: Soft, nontender, nondistended. Bowel sounds are present. EXTREMITIES: Without any edema, erythema or cyanosis. SKIN: Without any petechiae, lesion or bruises. NEURO: No focal deficits. PSYCHIATRIC: Mood and affect is appropriate. IMAGING STUDIES CT of the head completed on this admission does not show any intracranial abnormality. Chest x-ray does not show any evidence of pneumonia or consolidation. He had a hip x-ray on admission which shows extensive bony metastatic disease in the proximal right femur. No definitive fracture was seen. ASSESSMENT AND PLAN This is an 81-year-old male who has a history of Stage IV prostate adenocarcinoma with mets to the bone and possibly bladder who resents today with acute weakness, deconditioning and inability to ambulate. 1. Acute decline in functional status with severe weakness and deconditioning. This could be secondary to progressive disease versus medication effect. He tells me that he was recently started on a new oral medication for his prostate cancer. It is unclear whether this is Casodex or Xtandi. He was previously on Zytiga. There is also possibility of underlying infection. His UA shows a large amount of occult blood, leukocyte esterase is positive. There is a high number of WBCs. Urine cultures are pending. I agree with antibiotics. He has low-grade fever. Blood cultures are pending. The patient initially was considering hospice but now he wants full care. I would recommend obtaining a CT of the chest, abdomen and pelvis to assess his disease status. We will check his PSA levels. Further treatment for the prostate cancer will be given outpatient under the care of this oncologist. The patient is extremely deconditioned. His is also elderly and not able to take care of him at home. I had a long conversation with the patient. My recommendation would be to consider placement at a rehab facility. However, the patient is declining this. He states that he will discuss it with his and let us know. Continue to address acute issues in the hospital. Outpatient f/u for prostate cancer management. 2. Anemia with a hemoglobin of 9. His MCV is very low at 70. We will obtain anemia studies. He is microcytic; this is likely secondary to iron deficiency. We should also obtain a stool Hemoccult. 3. Hypocalcemia. Replace the calcium orally. 4. Severe malnutrition with albumin of 1.9. Dietary consult. Encourage oral intake. Ensure or Boost t.i.d. with meals. The patient will need physical therapy. We will consult Social Work for her discussion regarding placement upon discharge. Thank you for allowing me to participate in the care of this patient. I will continue to follow this patient along. MD KANIKA Morales/ALLEN /12:34 AM /5:06 AM SUNITA
[2016-12-10 05:33] LABS: AUTOMATED NEUTROPHIL # 8.2 TH/MM3 (1.8-7.7); BASOPHIL % 0.1 % (0.0-2.0); EOSINOPHIL % 0.2 % (0.0-4.0); LYMPH % 9.5 % (9.0-44.0); LYMPHOCYTE # 0.9 TH/MM3 (1.0-4.8); MEAN CELL VOLUME 69.8 FL (80.0-100.0); MEAN CORPUSCULAR HEMOGLOBIN 21.6 PG (27.0-34.0); MONO % 7.9 % (0.0-8.0); NEUT % 82.3 % (16.0-70.0); PLATELET COUNT 320 TH/MM3 (150-450); RED CELL DISTRIBUTION WIDTH 17.5 % (11.6-17.2); WHITE BLOOD COUNT 9.9 TH/MM3 (4.0-11.0)
[2016-12-10 05:40] LABS: HEMO FLAGS AUTO DIFF
[2016-12-10 05:49] LABS: POTASSIUM 3.9 MEQ/L (3.5-5.1)
[2016-12-10 05:54] LABS: OVALOCYTES 1+ (NORMAL); PLATELET ESTIMATE SMEAR NORMAL (NORMAL); PLATELET MORPHOLOGY NORMAL (NORMAL); SCAN/DIFF AUTO DIFF CONFIRMED
[2016-12-10 05:58] LABS: BICARBONATE 24.1 MEQ/L (21.0-32.0); MAGNESIUM 1.4 MG/DL (1.5-2.5)
[2016-12-10 06:21] LABS: CALCIUM-PROTEIN CORRECTED 6.9 MG/DL (8.5-10.1)
[2016-12-10] MEDS: MORPHINE SULFATE 15 MG TAB PO PRN ×3 (06:36→21:11)
[2016-12-10] MEDS: INSULIN ASPART SUPPLEMENTAL SCALE SQ SCH ×4 (07:00→21:16)
[2016-12-10] MEDS ORDERED: CALCIUM GLUCONATE INJ 2 GM in SODIUM CHLORIDE 0.9% INJ 100 ML IV ONE (07:45)
[2016-12-10] MEDS: MAGNESIUM SULFATE 1 GM PREMIX 100 ML IV SCH ×2 (08:45→10:30)
--- NOTE | 2016-12-10 08:54 | HHI.PR ---
Subjective Remarks Follow-up UTI/metastasis prostate cancer/generalized weakness 12/10/16-patient seen and examined, declined hospice yesterday and no acute event overnight. Currently afebrile, however still complains of generalized weakness Objective Vitals Vital Signs Date Time Temp Pulse Resp B/P Pulse Ox O2 Delivery O2 Flow Rate FiO2 12/10/16 04:00 98.0 112 20 114/79 98 12/10/16 00:00 98.1 116 20 115/81 97 12/09/16 20:30 133 12/09/16 20:00 98.9 121 20 144/70 96 12/09/16 19:35 95 Nasal Cannula 2.00 12/09/16 16:54 120 12/09/16 16:00 99.2 106 20 144/73 93 12/09/16 12:00 98.5 101 18 117/78 94 12/09/16 09:00 18 12/09/16 08:51 18 I/O 12/09/16 12/09/16 12/09/16 12/10/16 12/10/16 12/10/16 07:00 15:00 23:00 07:00 15:00 23:00 Intake Total 969 ml 725 ml 240 ml 1240 ml Balance 969 ml 725 ml 240 ml 1240 ml Intake Oral 480 ml 725 ml 240 ml 240 ml IV Total 489 ml 1000 ml # Voids 0 2 3 5 # Bowel Movements 0 0 0 0 Result Diagram: 12/10/16 0455 12/10/16 0455 Imaging Last Impressions Chest X-Ray 12/08/162022 Signed Impressions: Service Date/Time: Thursday, December 08, 2016 20:46 - CONCLUSION: 1. Minimal basilar scarring. No significant effusion. No pneumothorax. Tortuous aorta. Hilton Coe MD Hip and Pelvis X-Ray 12/08/16 0000 Signed Impressions: Service Date/Time: Thursday, December 08, 2016 21:13 - CONCLUSION: 1. Extensive bony metastatic disease especially to proximal right femur. No definite fracture identified. Hilton Coe MD Head CT 12/08/16 0000 Signed Impressions: Service Date/Time: Thursday, December 08, 2016 21:10 - CONCLUSION: Normal examination for a patient of this age. No significant change has occurred. Hilton Coe MD Objective Remarks GENERAL: NAD SKIN: Warm and dry. HEAD: Normocephalic. EYES: No scleral icterus. No injection or drainage. NECK: Supple, trachea midline. No JVD or lymphadenopathy. CARDIOVASCULAR: Regular rate and rhythm without murmurs, gallops, or rubs. RESPIRATORY: Breath sounds equal bilaterally. No accessory muscle use. GASTROINTESTINAL: Abdomen soft, non-tender, nondistended. MUSCULOSKELETAL: No cyanosis, or edema. BACK: Nontender without obvious deformity. No CVA tenderness. A/P Problem List: (1) UTI (lower urinary tract infection) ICD Code: N39.0 Status: Acute (2) Hypocalcemia ICD Code: E83.51 Status: Acute (3) Generalized weakness ICD Code: R53.1 Status: Acute (4) Diabetes ICD Code: E11.9 Status: Acute (5) Prostate cancer metastatic to bone ICD Code: C61 Status: Acute Assessment and Plan 81 year-old man with: Urinary tract infection Patient does have history of complicated urinary tract infections Currently on cefepime pending urine culture report Generalized weakness with recurrent falls at home Multiple possible etiologies to include urinary tract infection, hypocalcemia, disease progression, deconditioning Physical therapy evaluation Patient likely will need discharge to short term rehab Hypocalcemia Continue monitor and replete as needed Hypomagnesemia Replace electrolyte Chronic atrial fibrillation, heart rate controlled at this time Continue home medications Hypertension, hyperlipidemia Continue home medications Diabetes Accu-Cheks with sliding scale insulin Prostate cancer with metastasis to the bone Patient declined hospice admissions on 12/09/16 Appreciate input from oncology CT thorax and abdomen/pelvics pending Microcytic anemia H&H stable Iron study pending DVT prevention Sequential compression devices Problem Qualifiers (1) Diabetes: Qualified Code: E11.8 - Type 2 diabetes mellitus with complication, with long- term current use of insulin Gómez Ayers MD Dec 10, 2016 08:54
[2016-12-10] MEDS: SODIUM CHLORIDE 0.9% FLUSH 10 ML FLUSH IV FLUSH SCH ×2 (09:00→21:00)
--- NOTE | 2016-12-10 09:15 | RADRPT ---
EXAM DATE/TIME: 12/10/2016 08:38 [facility] COMPARISON: No previous studies available for comparison. INDICATIONS : Metastatic prostate cancer with weakness and lethargy. RADIATION DOSE: 17.56 CTDIvol (mGy) ; Combined studies - Thorax/Abdomen/Pelvis MEDICAL HISTORY : Carcinoma, prostate. Metastatic, bone. Carcinoma, bladder. Abdominal tumor removed. Diabetes. Hype rtension SURGICAL HISTORY : Prostatectomy. ENCOUNTER: Initial ACUITY: 2 days PAIN SCALE: 0/10 LOCATION: chest TECHNIQUE: Volumetric scanning of the chest was performed. Using automated exposure control and adjustment of t he mA and/or kV according to patient size, radiation dose was kept as low as reasonably achievable to obtain optimal diagnostic quality images. FINDINGS: LUNGS: Mild biapical paraseptal emphysema. 9 mm solid nodule in the in the inferior right upper lobe near th e minor fissure. Mild airspace consolidation in the lower lobes which may reflect compressive atelect asis. PLEURAE: There are small homogeneous low density bilateral pleural effusions. MEDIASTINUM: Severe coronary artery calcifications. Mitral and aortic valve calcifications. Heart is grossly unrem arkable without significant pericardial effusion. Moderate atherosclerotic calcifications involving t he thoracic aorta and proximal arch vessels. No significant external adenopathy. AXILLAE: Within normal limits. No lymphadenopathy. MUSCULOSKELETAL: Multiple sclerotic osseous metastases involving the thoracic spine and ribs as well as the scapula co nsistent with patient's history of metastatic prostate CA. MISCELLANEOUS: Visualized portions of the upper abdomen demonstrates small amount of perihepatic ascites. CONCLUSION: 1. Small simple appearing bilateral pleural effusions with associated likely compressive atelectasis in the lower lobes bilaterally. 2. Mild paraseptal upper lobe predominant emphysema. 3. 9 mm solid nodule in the inferior right upper lobe near the minor fissure. This may reflect additi onal focus of metastatic disease in this patient with history of metastatic prostate CA. Followup exa mination may be performed in 3 months to evaluate for stability as clinically warranted. This nodule is challenging for percutaneous biopsy due to small size. 4. Diffuse blastic bony metastases consistent with history of metastatic prostate CA. 5. Severe coronary artery calcifications. 6. Small amount of perihepatic ascites in the upper abdomen. Huan Ding MD on December 10, 2016 at 9:00 Board Certified Radiologist. This report was verified electronically.
--- NOTE | 2016-12-10 09:20 | RADRPT ---
EXAM DATE/TIME: 12/10/2016 08:38 [facility] COMPARISON: No previous studies available for comparison. Compared to abdomen and pelvis CT performed a [facility] on 08/03/2016. INDICATIONS : Metastatic prostate cancer with weakness and lethargy. ORAL CONTRAST: No oral contrast ingested. RADIATION DOSE: 17.56 CTDIvol (mGy) ; Combined studies - Thorax/Abdomen/Pelvis MEDICAL HISTORY : Carcinoma, prostate. Carcinoma, bladder. Metastatic, bone.Abdominal tumor removed. Diabetes. Hypert ension. SURGICAL HISTORY : Prostatectomy. ENCOUNTER: Initial ACUITY: 2 days PAIN SCALE: 0/10 LOCATION: Abdomen TECHNIQUE: Volumetric scanning of the abdomen and pelvis was performed. Using automated exposure control and ad justment of the mA and/or kV according to patient size, radiation dose was kept as low as reasonably achievable to obtain optimal diagnostic quality images. FINDINGS: LOWER LUNGS: Please refer to chest CT report for description of the supradiaphragmatic findings. LIVER: Liver is normal in density and in the right posterior liver there is a stable 15 mm low-density lesio n that has density measurements consistent with a cyst. Multiple calcified stones are present within the gallbladder. There is no dilation of the biliary tree. SPLEEN: Normal size without lesion. There is a focal anterior calcification. PANCREAS: There is fatty atrophy of the head and uncinate process. KIDNEYS: Right kidney is severely atrophic without hydronephrosis or mass identified. There is a 15 mm cyst at the upper pole of the left kidney that is stable. There is no hydronephrosis. Left hydroureter is pr esent and a ureteral stent is in place with proximal aspect of the stent and the extrarenal pelvis an d distal aspect of the urinary bladder. No renal stones are identified. ADRENAL GLANDS: There is stable thickening of the body of the left adrenal gland. Right adrenal gland is within jc l limits. VASCULAR: There is no aortic aneurysm. There is severe atherosclerotic disease. BOWEL/MESENTERY: The stomach, small bowel, and colon demonstrate no acute abnormality. There is no free intraperitone al air. There is a small volume of free fluid in the abdomen similar to the prior exam. ABDOMINAL WALL: Mild subcutaneous edema. RETROPERITONEUM: There is no lymphadenopathy. BLADDER: There is a soft tissue density mass along the left lateral wall at the ureterovesical junction measur ing approximately 5.1 x 2.8 cm. The bladder was previously decompressed. REPRODUCTIVE: Multiple clips are present in the pelvis and prostate gland is absent. INGUINAL: There is no lymphadenopathy or hernia. MUSCULOSKELETAL: There are degenerative changes throughout the spine with innumerable sclerotic lesions similar to the prior study. There are most numerous in the pelvis and right proximal femur. There is a minimally di splaced right inferior pubic ramus fracture. Spinal stimulator device is subcutaneous implanted in th e left back and the tips under the lumbar spinal canal and ascend into the thoracic spinal canal. CONCLUSION: 1. Innumerable sclerotic bone lesions characteristic of osseous metastatic disease. The appearance is similar to the prior CT. There is a minimally displaced right inferior pubic ramus fracture. 2. There is a left bladder mass measuring 5.1 x 2.8 cm. This was not visualized on the prior study bu t previously the urinary bladder was decompressed. Left ureteral stent is present. 3. There is a small volume of free fluid in the abdomen and pelvis. 4. Nonacute findings include cholelithiasis, atrophic right kidney, and severe atherosclerotic diseas e. Selvin Escamilla MD on December 10, 2016 at 9:00 Board Certified Radiologist. This report was verified electronically.
[2016-12-10 09:45] LABS: LDH SERUM 518 U/L (87-241)
[2016-12-10 10:08] LABS: RETIC % 1.6 % (0.4-3.0); REVIEW FLAG FINAL
[2016-12-10 10:11] LABS: FERRITIN 497 NG/ML (26-388); TRANSFERRIN IRON PROFILE 137 MG/DL (200-360)
[2016-12-10] MEDS: PANTOPRAZOLE SOD 20 MG DELAYED RELEASE TAB PO SCH (10:29)
[2016-12-10] MEDS: FUROSEMIDE 20 MG TAB PO SCH (10:29)
[2016-12-10] MEDS: METOPROLOL TARTRATE 25 MG TAB PO SCH ×2 (10:30→21:11)
[2016-12-10] MEDS: cefTAZidime INJ 2,000 MG in SODIUM CHLORIDE 0.9% INJ 100 ML IV SCH ×2 (11:54→21:10)
[2016-12-10] MEDS: SODIUM CHLOR 0.9% 1000 ML INJ 1,000 ML IV SCH ×2 (11:55→21:17)
[2016-12-10] MEDS ORDERED: MAGNESIUM SULFATE 1 GM PREMIX 100 ML IV SCH (17:00)
[2016-12-10] MEDS: ATORVASTATIN 10 MG TAB PO SCH (21:10)
--- NOTE | 2016-12-10 22:28 | PD.ONC.PN ---
Subjective Subjective Remarks seen earlier in the day remains weak and deconditioned in bed appears comfortable denies any pain had CT scans today considering placement to [facility] d/w rn Objective Data Date Time Temp Pulse Resp B/P Pulse Ox O2 Delivery O2 Flow Rate FiO2 12/10/16 20:25 93 Nasal Cannula 3.00 12/10/16 20:00 98.9 123 18 155/85 93 12/10/16 16:00 97.2 106 20 139/75 95 12/10/16 12:00 99.0 102 20 138/72 94 12/10/16 09:27 91 Nasal Cannula 2.00 12/10/16 08:00 98.1 104 18 105/69 92 12/10/16 04:00 98.0 112 20 114/79 98 12/10/16 00:00 98.1 116 20 115/81 97 12/10/16 12/10/16 12/10/16 07:00 15:00 23:00 Intake Total 1240 ml 650 ml Balance 1240 ml 650 ml Result Diagram: 12/10/16 0455 12/10/16 0455 Laboratory Results Laboratory Tests Test 12/10/16 12/10/16 04:55 13:45 White Blood Count 9.9 TH/MM3 Red Blood Count 4.30 MIL/MM3 Hemoglobin 9.3 GM/DL Hematocrit 30.0 % Mean Corpuscular Volume 69.8 FL Mean Corpuscular Hemoglobin 21.6 PG Mean Corpuscular Hemoglobin 31.0 % Concent Red Cell Distribution Width 17.5 % Platelet Count 320 TH/MM3 Mean Platelet Volume 7.8 FL Neutrophils (%) (Auto) 82.3 % Lymphocytes (%) (Auto) 9.5 % Monocytes (%) (Auto) 7.9 % Eosinophils (%) (Auto) 0.2 % Basophils (%) (Auto) 0.1 % Neutrophils # (Auto) 8.2 TH/MM3 Lymphocytes # (Auto) 0.9 TH/MM3 Monocytes # (Auto) 0.8 TH/MM3 Eosinophils # (Auto) 0.0 TH/MM3 Basophils # (Auto) 0.0 TH/MM3 CBC Comment AUTO DIFF Differential Comment AUTO DIFF CONFIRMED Platelet Estimate NORMAL Platelet Morphology Comment NORMAL Ovalocytes 1+ Reticulocyte Count 1.6 % Absolute Reticulocyte Count 69.3 MIL/L Sodium Level 139 MEQ/L Potassium Level 3.9 MEQ/L Chloride Level 105 MEQ/L Carbon Dioxide Level 24.1 MEQ/L Anion Gap 10 MEQ/L Blood Urea Nitrogen 20 MG/DL Creatinine 1.40 MG/DL Estimat Glomerular Filtration 49 ML/MIN Rate Random Glucose 176 MG/DL Calcium Level 6.2 MG/DL 6.4 MG/DL Protein Corrected Calcium 6.9 MG/DL Magnesium Level 1.4 MG/DL Iron Level 15 MCG/DL Total Iron Binding Capacity 192 MCG/DL Percent Iron Saturation 7.8 % Ferritin 497 NG/ML Lactate Dehydrogenase 518 U/L Total Protein 5.6 GM/DL Prostate Specific Antigen 392.05 NG/ML Vitamin B12 Level 193 PG/ML 25-Hydroxy Vitamin D Total 21.7 ng/ML Parathyroid Hormone (Intact) 831.9 PG/ML Culture Results Microbiology Date/Time Procedure Status Source Growth 12/08/16 20:48 Aerobic Blood Culture - Preliminary Resulted Blood Peripheral NO GROWTH IN 2 DAYS 12/08/16 20:48 Anaerobic Blood Culture - Preliminary Resulted Blood Peripheral NO GROWTH IN 2 DAYS 12/08/16 20:50 Aerobic Blood Culture - Preliminary Resulted Blood Peripheral NO GROWTH IN 2 DAYS 12/08/16 20:50 Anaerobic Blood Culture - Preliminary Resulted Blood Peripheral NO GROWTH IN 2 DAYS 12/08/16 22:40 Urine Culture - Final Complete Urine Clean Catch 50-100,000 CFU/ML MIXED BRODY... Imaging Studies Last [address] 12/10/16 0000 Signed Impressions: Service Date/Time: November 08:38 - CONCLUSION: 1. Small simple appearing bilateral pleural effusions with associated likely compressive atelectasis in the lower lobes bilaterally. 2. Mild paraseptal upper lobe predominant emphysema. 3. 9 mm solid nodule in the inferior right upper lobe near the minor fissure. This may reflect additional focus of metastatic disease in this patient with history of metastatic prostate CA. Followup examination may be performed in 3 months to evaluate for stability as clinically warranted. This nodule is challenging for percutaneous biopsy due to small size. 4. Diffuse blastic bony metastases consistent with history of metastatic prostate CA. 5. Severe coronary artery calcifications. 6. Small amount of perihepatic ascites in the upper abdomen. Huan Ding MD Abdomen/Pelvis CT 12/10/16 0000 Signed Impressions: Service Date/Time: Thursday, December 10, 2016 08:38 - CONCLUSION: 1. Innumerable sclerotic bone lesions characteristic of osseous metastatic disease. The appearance is similar to the prior CT. There is a minimally displaced right inferior pubic ramus fracture. 2. There is a left bladder mass measuring 5.1 x 2.8 cm. This was not visualized on the prior study but previously the urinary bladder was decompressed. Left ureteral stent is present. 3. There is a small volume of free fluid in the abdomen and pelvis. 4. Nonacute findings include cholelithiasis, atrophic right kidney, and severe atherosclerotic disease. Selvin Escamilla MD Administered Medications Medications (Trade) Dose Ordered Sig/Jimmy Route PRN Reason Start Time Stop Time Status Last Admin Dose Admin Sodium Chloride (NS 1000 ml Inj) 1,000 ml @ 75 mls/hr [id number] IV 12/08/16 21:00 12/10/16 21:17 Sodium Chloride (NS Flush) 2 ml UNSCH PRN IV FLUSH FLUSH AFTER USING IV ACCESS 12/08/16 22:30 12/09/16 02:05 Sodium Chloride (NS Flush) 2 ml BID IV FLUSH 12/09/16 09:00 12/10/16 09:00 Morphine Sulfate (Msir) 15 mg Q6H PRN PO pain 1-10 12/09/16 01:15 12/10/16 21:11 Amlodipine Besylate (Norvasc) 10 mg DAILY PO 12/09/16 09:00 12/10/16 10:29 Atorvastatin Calcium (Lipitor) 10 mg HS PO 12/09/16 21:00 12/10/16 21:10 Fentanyl (Duragesic 75 Mcg Patch.72 Hr) 75 patch Q72H T-DERMAL 12/09/16 08:00 12/09/16 08:00 Furosemide (Lasix) 20 mg DAILY PO 12/09/16 09:00 12/10/16 10:29 Metoprolol Tartrate (Lopressor) 25 mg BID PO 12/09/16 09:00 12/10/16 21:11 Pantoprazole Sodium 20 mg 20 mg DAILY PO 12/09/16 08:15 12/10/16 10:29 Ceftazidime/ Sodium Chloride (Fortaz Inj/NS Inj) 100 ml @ 200 mls/hr Q12H IV 12/09/16 08:00 12/10/16 21:10 Objective Remarks GENERAL: nad/ill appearing SKIN: Warm and dry. NECK: Supple, trachea midline. No JVD or lymphadenopathy. LYMPHATIC: No adenopathy. CARDIOVASCULAR: Regular rate and rhythm without murmurs. RESPIRATORY: Breath sounds equal bilaterally. No accessory muscle use. GASTROINTESTINAL: Abdomen soft, non-tender, nondistended. EXTREMITIES: No cyanosis, or edema. Assessment/Plan Problem List: (1) UTI (lower urinary tract infection) Status: Acute (2) Prostate cancer metastatic to bone Status: Acute (3) Chronic kidney disease, stage 3 Status: Acute (4) Anemia Status: Acute (5) Acute on chronic renal failure Status: Acute Assessment 81-year-old male who has a history of Stage IV prostate adenocarcinoma with mets to the bone and possibly bladder who resents today with acute weakness, deconditioning and inability to ambulate. 1. Acute decline in functional status with severe weakness and deconditioning. - multifactorial--disease/new medication started recently/UTI - reviewed CT scans --> diffused bony metastatic disease. Large Bladder mass seen. Unclear if it was biopsied before - Will ask urology to see regarding bladder mass - continue to treat UTI--follow urine cultures - further treatment for prostate cancer outpatient. PSA elevated to 392, LDH in the 500's 2. Anemia with a hemoglobin of 9. His MCV is very low at 70. - Anemia with iron deficiency. Start oral iron for now. - Ferritin elevated as an acute phase reactant - Stool heme-occult pending 3. Hypocalcemia/Hypomagnesemia. Replace electrolytes 4. Severe malnutrition with albumin of 1.9. Dietary consult. Encourage oral intake. Ensure or Boost t.i.d. with meals. 5. Stage IV prostate cancer---outpatient management 6. Deconditioning: will need rehab placement Extensive discussion with patient. Tried to call his over the phone--left VM. Will attempt speak with her again Rajesh Smith MD Dec 10, 2016 22:28
[2016-12-10] MEDS: DOCUSATE SODIUM 50 MG/SENNA 8.6 MG TAB PO SCH (22:45)
[2016-12-10] MEDS: POLYSACCHARIDE IRON COMPLEX 150 MG CAP PO SCH (23:50)
[2016-12-11] VITALS: BP 134/67; PULSE 115; RESP 18; TEMP 99.1; O2SAT 93
[2016-12-11 04:00] VITALS: BP 131/73; PULSE 125; RESP 20; TEMP 98.5; O2SAT 91
[2016-12-11] MEDS: INSULIN ASPART SUPPLEMENTAL SCALE SQ SCH ×2 (05:28→12:41)
[2016-12-11 06:45] VITALS: PULSE 116
[2016-12-11 08:00] VITALS: BP 120/76; PULSE 120; RESP 18; TEMP 98.1; O2SAT 90
--- NOTE | 2016-12-11 08:00 | PD.CONS ---
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 Khan now seen in consultation for possible bladder mass. Patient has known metastatic prostate cancer with bony metastasis, followed also by Dr. Marcos in oncology. He is undergoing chemotherapy for this prostate cancer. Currently admitted due to a fall. CT scan identified abnormality within the bladder, concerning for possible malignancy. Patient has not had any recent cystoscopic evaluation. No hematuria. No issues voiding. No fevers, no abdominal pain. Of note, patient had a right nephrectomy due to cancer, however unclear is this was RCC or urothelial carcinoma.He also has a left ureteral stent in place. Review of Systems ROS Limitations: Clinical Condition Constitutional: DENIES: Fever Endocrine: DENIES: Polyuria Eyes: DENIES: Blurred vision Ears, nose, mouth, throat: DENIES: Tinnitus Respiratory: DENIES: Apneas Cardiovascular: DENIES: Chest pain Gastrointestinal: DENIES: Abdominal pain Genitourinary: DENIES: Urgency, Hematuria, Dysuria Musculoskeletal: COMPLAINS OF: Joint pain Integumentary: DENIES: Abnormal pigmentation Neurologic: DENIES: Headache Psychiatric: DENIES: Anxiety Except as stated in HPI: all other systems reviewed are Neg Past Family Social History Past Medical History Atrial fibrillation with CHADS/VASC 5 Hypertension Diabetes Hyperlipidemia Chronic kidney disease stage III Peripheral vascular disease right lower extremity History of basal cell carcinoma Squamous cell carcinoma Left hydronephrosis Chronic anemia History of shingles History of back pain Bladder cancer Prostate cancer with metastasis to the bone Past Surgical History Right nephrectomy with tumor resection Prostatectomy Right wrist fracture Left knee replacement Nephrostomy tube placement Ureter stent EGD with biopsy Reported Medications Reported Meds & Active Scripts Active Lantus Solostar Pen Inj (Insulin Glargine) 300 Unit/3 Ml Pen 60 Units SQ HS Wheelchair (Device) 1 Mis Mis 1 Ea .ROUTE DIRECTED Lipitor (Atorvastatin Calcium) 10 Mg Tab 10 Mg PO HS Omeprazole 20 Mg Tab 20 Mg PO DAILY Furosemide 20 Mg Tab 20 Mg PO DAILY Amlodipine (Amlodipine Besylate) 10 Mg Tab 10 Mg PO DAILY Reported Xtandi (Enzalutamide) 40 Mg Cap 160 Mg PO DAILY Calcium (Calcium Carbonate-Cholecalciferol) 1,250-100 Mg-Unit Chew 1,000 Mg CHEW DAILY Prochlorperazine Maleate 10 Mg Tab 10 Mg PO Q6H PRN Morphine ER (Morphine Sulfate) 15 Mg Tab 15 Mg PO Q8H PRN Oxycodone-Acetaminophen 10-325 mg Tab 1 Tab PO BID Metoprolol Tartrate 25 Mg Tab 25 Mg PO BID Fentanyl Patch 72 HR (Fentanyl) 75 Mcg/Hr Patch 75 Mcg T-DERMAL Q72H Remove old patch when new one placed. Novolog Penfill Inj (Insulin Aspart) 300 Unit/3 Ml Pen 40 Units SQ TIDAC PRN Novolin R Inj (Insulin Human Regular) 1,000 Unit/10 Ml Vial 0 SQ DIRECTED 0-149 = 0 Novolin R 150-199 = 5U 200-249 = 7U 250-299 = 10U 300-349 = 12U >349 = 15U Casodex (Bicalutamide) 50 Mg Tab 50 Mg PO DAILY Hazardous agent; use appropriate precautions for handling & disposal. 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 Patient drinks approximately one beer a week, denies any illicit drugs Physical Exam Vital Signs Date Time Temp Pulse Resp B/P Pulse Ox O2 Delivery O2 Flow Rate FiO2 12/11/16 04:00 98.5 125 20 131/73 91 12/11/16 00:00 99.1 115 18 134/67 93 12/10/16 20:25 93 Nasal Cannula 3.00 12/10/16 20:00 98.9 123 18 155/85 93 12/10/16 20:00 125 12/10/16 16:00 97.2 106 20 139/75 95 12/10/16 12:00 99.0 102 20 138/72 94 12/10/16 09:27 91 Nasal Cannula 2.00 12/10/16 08:00 98.1 104 18 105/69 92 Physical Exam GENERAL: This is a well-nourished, well-developed patient, in no apparent distress. SKIN: No rashes, ecchymoses or lesions. Cool and dry. HEAD: Atraumatic. Normocephalic. EYES: Extraocular motions intact. No scleral icterus. ENT: Nose without bleeding, purulent drainage. Airway patent. NECK: Trachea midline.. CARDIOVASCULAR: Normal pulses RESPIRATORY: Nonlabored. GASTROINTESTINAL: Abdomen soft, non-tender, nondistended. MUSCULOSKELETAL: Extremities without clubbing, cyanosis, or edema.. NEUROLOGICAL: Awake and alert. Motor and sensory grossly within normal limits. Normal speech. Lab results reviewed: Yes Laboratory Tests Test 12/10/16 13:45 Calcium Level 6.4 25-Hydroxy Vitamin D Total 21.7 Parathyroid Hormone (Intact) 831.9 Date/Time Procedure Status Source Growth 12/08/16 22:40 Urine Culture - Final Complete Urine Clean Catch 50-100,000 CFU/ML MIXED BRODY... 12/08/16 20:50 Aerobic Blood Culture - Preliminary Resulted Blood Peripheral NO GROWTH IN 2 DAYS 12/08/16 20:50 Anaerobic Blood Culture - Preliminary Resulted Blood Peripheral NO GROWTH IN 2 DAYS Result Diagram: 12/10/16 0455 12/10/16 0455 Personally reviewed images: Yes Imaging Last Impressions Chest CT 12/10/16 0000 Signed Impressions: Service Date/Time: November 08:38 - CONCLUSION: 1. Small simple appearing bilateral pleural effusions with associated likely compressive atelectasis in the lower lobes bilaterally. 2. Mild paraseptal upper lobe predominant emphysema. 3. 9 mm solid nodule in the inferior right upper lobe near the minor fissure. This may reflect additional focus of metastatic disease in this patient with history of metastatic prostate CA. Followup examination may be performed in 3 months to evaluate for stability as clinically warranted. This nodule is challenging for percutaneous biopsy due to small size. 4. Diffuse blastic bony metastases consistent with history of metastatic prostate CA. 5. Severe coronary artery calcifications. 6. Small amount of perihepatic ascites in the upper abdomen. Huan Ding MD Abdomen/Pelvis CT 12/10/16 0000 Signed Impressions: Service Date/Time: November 08:38 - CONCLUSION: 1. Innumerable sclerotic bone lesions characteristic of osseous metastatic disease. The appearance is similar to the prior CT. There is a minimally displaced right inferior pubic ramus fracture. 2. There is a left bladder mass measuring 5.1 x 2.8 cm. This was not visualized on the prior study but previously the urinary bladder was decompressed. Left ureteral stent is present. 3. There is a small volume of free fluid in the abdomen and pelvis. 4. Nonacute findings include cholelithiasis, atrophic right kidney, and severe atherosclerotic disease. Selvin Escamilla MD Chest X-Ray 12/08/162022 Signed Impressions: Service Date/Time: Thursday, December 08, 2016 20:46 - CONCLUSION: 1. Minimal basilar scarring. No significant effusion. No pneumothorax. Tortuous aorta. Hilton Coe MD Hip and Pelvis X-Ray 12/08/16 0000 Signed Impressions: Service Date/Time: Thursday, December 08, 2016 21:13 - CONCLUSION: 1. Extensive bony metastatic disease especially to proximal right femur. No definite fracture identified. Hilton Coe MD Head CT 12/08/16 0000 Signed Impressions: Service Date/Time: Thursday, December 08, 2016 21:10 - CONCLUSION: Normal examination for a patient of this age. No significant change has occurred. Hilton Coe MD Assessment and Plan Assessment and Plan 81yo male with metastatic prostate cancer and new found bladder mass -Unclear etiology of bladder mass, however it is concerning for malignancy -Further evaluation of this bladder mass is warranted with cystoscopy -At this time, the patient appears stable and may be discharged at the discretion of the primary team. Further evaluation of his new found bladder lesion ay be completed as an outpatient with his Urologist. -Please call with questions Problem Qualifiers (1) Diabetes: Qualified Code: E11.8 - Type 2 diabetes mellitus with complication, with long- term current use of insulin Martin Pretty MD Dec 11, 2016 08:00
[2016-12-11] MEDS: PANTOPRAZOLE SOD 20 MG DELAYED RELEASE TAB PO SCH (08:47)
[2016-12-11] MEDS: cefTAZidime INJ 2,000 MG in SODIUM CHLORIDE 0.9% INJ 100 ML IV SCH (08:47)
[2016-12-11] MEDS: DOCUSATE SODIUM 50 MG/SENNA 8.6 MG TAB PO SCH (08:47)
[2016-12-11] MEDS: FUROSEMIDE 20 MG TAB PO SCH (08:47)
[2016-12-11] MEDS: METOPROLOL TARTRATE 25 MG TAB PO SCH (08:47)
[2016-12-11] MEDS: SODIUM CHLORIDE 0.9% FLUSH 10 ML FLUSH IV FLUSH SCH (08:48)
[2016-12-11 09:30] VITALS: O2SAT 95
--- NOTE | 2016-12-11 10:53 | HHI.PR ---
Subjective Remarks Follow-up UTI/metastasis prostate cancer/generalized weakness 12/10/16-patient seen and examined, declined hospice yesterday and no acute event overnight. Currently afebrile, however still complains of generalized weakness 12/11/16-patient seen and examined, no change, patient is not agreeable for hospice home. Urine culture negative and patient currently on room air with oxygen saturation 95% Objective Vitals Vital Signs Date Time Temp Pulse Resp B/P Pulse Ox O2 Delivery O2 Flow Rate FiO2 12/11/16 09:30 95 Nasal Cannula 3.00 12/11/16 08:00 98.1 120 18 120/76 90 12/11/16 04:00 98.5 125 20 131/73 91 12/11/16 00:00 99.1 115 18 134/67 93 12/10/16 20:25 93 Nasal Cannula 3.00 12/10/16 20:00 98.9 123 18 155/85 93 12/10/16 20:00 125 12/10/16 16:00 97.2 106 20 139/75 95 12/10/16 12:00 99.0 102 20 138/72 94 I/O 12/10/16 12/10/16 12/10/16 12/11/16 12/11/16 12/11/16 07:00 15:00 23:00 07:00 15:00 23:00 Intake Total 1240 ml 650 ml 640 ml Balance 1240 ml 650 ml 640 ml Intake Oral 240 ml 650 ml 640 ml IV Total 1000 ml # Voids 5 2 4 # Bowel Movements 0 0 0 Result Diagram: 12/10/16 0455 12/10/16 0455 Imaging Last Impressions Chest CT 12/10/16 0000 Signed Impressions: Service Date/Time: November 08:38 - CONCLUSION: 1. Small simple appearing bilateral pleural effusions with associated likely compressive atelectasis in the lower lobes bilaterally. 2. Mild paraseptal upper lobe predominant emphysema. 3. 9 mm solid nodule in the inferior right upper lobe near the minor fissure. This may reflect additional focus of metastatic disease in this patient with history of metastatic prostate CA. Followup examination may be performed in 3 months to evaluate for stability as clinically warranted. This nodule is challenging for percutaneous biopsy due to small size. 4. Diffuse blastic bony metastases consistent with history of metastatic prostate CA. 5. Severe coronary artery calcifications. 6. Small amount of perihepatic ascites in the upper abdomen. Huan Ding MD Abdomen/Pelvis CT 12/10/16 0000 Signed Impressions: Service Date/Time: November 08:38 - CONCLUSION: 1. Innumerable sclerotic bone lesions characteristic of osseous metastatic disease. The appearance is similar to the prior CT. There is a minimally displaced right inferior pubic ramus fracture. 2. There is a left bladder mass measuring 5.1 x 2.8 cm. This was not visualized on the prior study but previously the urinary bladder was decompressed. Left ureteral stent is present. 3. There is a small volume of free fluid in the abdomen and pelvis. 4. Nonacute findings include cholelithiasis, atrophic right kidney, and severe atherosclerotic disease. Selvin Escamilla MD Chest X-Ray 12/08/162022 Signed Impressions: Service Date/Time: Thursday, December 08, 2016 20:46 - CONCLUSION: 1. Minimal basilar scarring. No significant effusion. No pneumothorax. Tortuous aorta. Hilton Coe MD Hip and Pelvis X-Ray 12/08/16 0000 Signed Impressions: Service Date/Time: Thursday, December 08, 2016 21:13 - CONCLUSION: 1. Extensive bony metastatic disease especially to proximal right femur. No definite fracture identified. Hilton Coe MD Head CT 12/08/16 0000 Signed Impressions: Service Date/Time: Thursday, December 08, 2016 21:10 - CONCLUSION: Normal examination for a patient of this age. No significant change has occurred. Hilton Coe MD Objective Remarks GENERAL: NAD SKIN: Warm and dry. HEAD: Normocephalic. EYES: No scleral icterus. No injection or drainage. NECK: Supple, trachea midline. No JVD or lymphadenopathy. CARDIOVASCULAR: Regular rate and rhythm without murmurs, gallops, or rubs. RESPIRATORY: Breath sounds equal bilaterally. No accessory muscle use. GASTROINTESTINAL: Abdomen soft, non-tender, nondistended. MUSCULOSKELETAL: No cyanosis, or edema. BACK: Nontender without obvious deformity. No CVA tenderness. Procedures none A/P Problem List: (1) UTI (lower urinary tract infection) ICD Code: N39.0 Status: Acute (2) Hypocalcemia ICD Code: E83.51 Status: Acute (3) Generalized weakness ICD Code: R53.1 Status: Acute (4) Diabetes ICD Code: E11.9 Status: Acute (5) Prostate cancer metastatic to bone ICD Code: C61 Status: Acute Assessment and Plan 81 year-old man with: Urinary tract infection Patient does have history of complicated urinary tract infections Currently on cefepime however urine culture negative therefore will discontinue IV antibiotic Generalized weakness with recurrent falls at home Multiple possible etiologies to include urinary tract infection, hypocalcemia, disease progression, deconditioning Physical therapy evaluation Hypocalcemia Continue monitor and replete as needed Hypomagnesemia Replace electrolyte Chronic atrial fibrillation, heart rate controlled at this time Continue home medications Hypertension, hyperlipidemia Continue home medications Diabetes Accu-Cheks with sliding scale insulin Prostate cancer with metastasis to the bone Patient is not agreeable for hospice at home discharge after initially refusing Appreciate input from oncology as well as urology CT thorax and abdomen/pelvics noted and review with evidence of metastasis disease Microcytic anemia H&H stable Iron study noted DVT prevention Sequential compression devices Problem Qualifiers (1) Diabetes: Qualified Code: E11.8 - Type 2 diabetes mellitus with complication, with long- term current use of insulin Gómez Ayers MD Dec 11, 2016 10:53
--- NOTE | 2016-12-11 10:55 | HHI.DS ---
Discharge Summary Admission Date Dec 09, 2016 at 10:09 Discharge Date: Dec 11, 2016 Admitting Diagnosis Generalized weakness; hypocalcemia; AFRVR (1) UTI (lower urinary tract infection) ICD Code: N39.0 (2) Hypocalcemia ICD Code: E83.51 (3) Generalized weakness ICD Code: R53.1 (4) Diabetes ICD Code: E11.9 (5) Prostate cancer metastatic to bone ICD Code: C61 Procedures none Brief History - From Admission Written by Cj Sharma, acting as scribe for Dr. Ayers on 12/09/16 at 11: 11. 81-year-old rather unfortunate male with known history of prostate cancer with metastasis who is undergoing outpatient management by urology and oncology Dr. Marcos. Patient is undergoing chemotherapy at this time. However patient states that he is had increased weakness over the last few weeks. He has fallen at least 3 times where he fallen off the bed against the wall where he was unable to get up on his own. He indicates that his is been trying to help him however yesterday when he fell his was unable to get him back up again. Patient was brought to the hospital for evaluation and found to have multiple etiologies which could cause his profound weakness to include tachycardia, metastatic cancer, hypocalcemia, progression of disease, urinary tract infection. Patient was admitted the hospital for further evaluation management. Upon talking to the patient today. He does admit to progressive weakness with recurrent falls. He does understand that he has been told that his condition is untreatable. He is evaluating the possibility of hospice. This time patient does want to undergo hospice evaluation. He does not want to remain in the hospital any longer than he has to. CBC/BMP: 12/10/16 0455 12/10/16 0455 Significant Findings Laboratory Tests Test 12/08/16 12/08/16 12/08/16 12/09/16 20:48 20:50 22:40 00:22 White Blood Count 11.3 TH/MM3 (4.0-11.0) Red Blood Count 4.34 MIL/MM3 (4.50-5.90) Hemoglobin 9.5 GM/DL (13.0-17.0) Hematocrit 30.0 % (39.0-51.0) Mean Corpuscular Volume 68.9 FL (80.0-100.0) Mean Corpuscular Hemoglobin 21.9 PG (27.0-34.0) Mean Corpuscular Hemoglobin 31.8 % Concent (32.0-36.0) Red Cell Distribution Width 17.4 % (11.6-17.2) Neutrophils (%) (Auto) 84.3 % (16.0-70.0) Lymphocytes (%) (Auto) 4.1 % (9.0-44.0) Basophils (%) (Auto) 3.9 % (0.0-2.0) Neutrophils # (Auto) 9.6 TH/MM3 (1.8-7.7) Lymphocytes # (Auto) 0.5 TH/MM3 (1.0-4.8) Basophils # (Auto) 0.4 TH/MM3 (0-0.2) Tear Drop Cells 1+ (NORMAL) Ovalocytes 1+ (NORMAL) Prothrombin Time 14.6 SEC (9.8-11.6) Activated Partial 35.5 SEC Thromboplast Time (24.3-30.1) Blood Urea Nitrogen 25 MG/DL (7-18) 24 MG/DL (7-18) Creatinine 1.70 MG/DL 1.70 MG/DL (0.60-1.30) (0.60-1.30) Estimat Glomerular Filtration 39 ML/MIN (>89) 39 ML/MIN (>89) Rate Random Glucose 219 MG/DL 212 MG/DL (74-106) (74-106) Calcium Level 6.5 MG/DL 6.6 MG/DL (8.5-10.1) (8.5-10.1) Protein Corrected Calcium 7.0 MG/DL 7.2 MG/DL (8.5-10.1) (8.5-10.1) Alanine Aminotransferase 9 U/L (12-78) (ALT/SGPT) Alkaline Phosphatase 349 U/L (45-117) Troponin I LESS THAN 0.02 NG/ML (0.02-0.05) B-Type Natriuretic Peptide 182 PG/ML (0-100) Total Protein 6.1 GM/DL 5.8 GM/DL (6.4-8.2) (6.4-8.2) Albumin 1.9 GM/DL (3.4-5.0) Lactic Acid Level 2.5 mmol/L (0.4-2.0) Urine Turbidity CLOUDY (CLEAR) Urine Protein 100 mg/dL (NEG-TRACE) Urine Occult Blood LARGE (NEG) Urine Leukocyte Esterase MOD (NEG) Urine RBC 100-200 /hpf (0-3) Urine WBC INNUM /hpf (0-5) Urine WBC Clumps FEW (NONE) Urine Bacteria FEW /hpf (NONE) Test 12/09/16 12/10/16 12/10/16 05:40 04:55 13:45 Red Blood Count 4.18 MIL/MM3 4.30 MIL/MM3 (4.50-5.90) (4.50-5.90) Hemoglobin 9.0 GM/DL 9.3 GM/DL (13.0-17.0) (13.0-17.0) Hematocrit 29.3 % 30.0 % (39.0-51.0) (39.0-51.0) Mean Corpuscular Volume 70.1 FL 69.8 FL (80.0-100.0) (80.0-100.0) Mean Corpuscular Hemoglobin 21.6 PG 21.6 PG (27.0-34.0) (27.0-34.0) Mean Corpuscular Hemoglobin 30.8 % 31.0 % Concent (32.0-36.0) (32.0-36.0) Red Cell Distribution Width 17.8 % 17.5 % (11.6-17.2) (11.6-17.2) Neutrophils (%) (Auto) 76.6 % 82.3 % (16.0-70.0) (16.0-70.0) Basophilic Stippling MOD (NORMAL) Ovalocytes 1+ (NORMAL) 1+ (NORMAL) Rouleau PRESENT (NORMAL) Blood Urea Nitrogen 24 MG/DL (7-18) 20 MG/DL (7-18) Creatinine 1.60 MG/DL 1.40 MG/DL (0.60-1.30) (0.60-1.30) Estimat Glomerular Filtration 42 ML/MIN (>89) 49 ML/MIN (>89) Rate Random Glucose 160 MG/DL 176 MG/DL (74-106) (74-106) Calcium Level 6.4 MG/DL 6.2 MG/DL 6.4 MG/DL (8.5-10.1) (8.5-10.1) (8.5-10.1) Protein Corrected Calcium 7.1 MG/DL 6.9 MG/DL (8.5-10.1) (8.5-10.1) Total Protein 5.7 GM/DL 5.6 GM/DL (6.4-8.2) (6.4-8.2) Neutrophils # (Auto) 8.2 TH/MM3 (1.8-7.7) Lymphocytes # (Auto) 0.9 TH/MM3 (1.0-4.8) Magnesium Level 1.4 MG/DL (1.5-2.5) Iron Level 15 MCG/DL (65-175) Total Iron Binding Capacity 192 MCG/DL (250-450) Percent Iron Saturation 7.8 % (20-50) Ferritin 497 NG/ML (26-388) Lactate Dehydrogenase 518 U/L (87-241) Prostate Specific Antigen 392.05 NG/ML (0.00-4.00) 25-Hydroxy Vitamin D Total 21.7 ng/ML (30-100) Parathyroid Hormone (Intact) 831.9 PG/ML (12.4-76.8) Imaging Last Impressions Chest CT 12/10/16 0000 Signed Impressions: Service Date/Time: November 08:38 - CONCLUSION: 1. Small simple appearing bilateral pleural effusions with associated likely compressive atelectasis in the lower lobes bilaterally. 2. Mild paraseptal upper lobe predominant emphysema. 3. 9 mm solid nodule in the inferior right upper lobe near the minor fissure. This may reflect additional focus of metastatic disease in this patient with history of metastatic prostate CA. Followup examination may be performed in 3 months to evaluate for stability as clinically warranted. This nodule is challenging for percutaneous biopsy due to small size. 4. Diffuse blastic bony metastases consistent with history of metastatic prostate CA. 5. Severe coronary artery calcifications. 6. Small amount of perihepatic ascites in the upper abdomen. Huan Ding MD Abdomen/Pelvis CT 12/10/16 0000 Signed Impressions: Service Date/Time: November 08:38 - CONCLUSION: 1. Innumerable sclerotic bone lesions characteristic of osseous metastatic disease. The appearance is similar to the prior CT. There is a minimally displaced right inferior pubic ramus fracture. 2. There is a left bladder mass measuring 5.1 x 2.8 cm. This was not visualized on the prior study but previously the urinary bladder was decompressed. Left ureteral stent is present. 3. There is a small volume of free fluid in the abdomen and pelvis. 4. Nonacute findings include cholelithiasis, atrophic right kidney, and severe atherosclerotic disease. Selvin Escamilla MD Chest X-Ray 12/08/162022 Signed Impressions: Service Date/Time: Thursday, December 08, 2016 20:46 - CONCLUSION: 1. Minimal basilar scarring. No significant effusion. No pneumothorax. Tortuous aorta. Hilton Coe MD Hip and Pelvis X-Ray 12/08/16 0000 Signed Impressions: Service Date/Time: Thursday, December 08, 2016 21:13 - CONCLUSION: 1. Extensive bony metastatic disease especially to proximal right femur. No definite fracture identified. Hilton Coe MD Head CT 12/08/16 0000 Signed Impressions: Service Date/Time: Thursday, December 08, 2016 21:10 - CONCLUSION: Normal examination for a patient of this age. No significant change has occurred. Hilton Coe MD PE at Discharge GENERAL: NAD SKIN: Warm and dry. HEAD: Normocephalic. EYES: No scleral icterus. No injection or drainage. NECK: Supple, trachea midline. No JVD or lymphadenopathy. CARDIOVASCULAR: Regular rate and rhythm without murmurs, gallops, or rubs. RESPIRATORY: Breath sounds equal bilaterally. No accessory muscle use. GASTROINTESTINAL: Abdomen soft, non-tender, nondistended. MUSCULOSKELETAL: No cyanosis, or edema. BACK: Nontender without obvious deformity. No CVA tenderness. Hospital Course Patient was admitted initially treated for UTI with IV antibiotics until urine culture resulted as negative. Oncology as well as urology was consulted secondary to history of metastasis and prostate cancer. After initially refusing hospice discharge, patient consented for hospice at home. Physical therapy was consulted. Treatment for other chronic medical conditions were continued. Patient was placed on a sliding scale insulin. DVT and GI prophylaxis were provided Pt Condition on Discharge: Deteriorating Discharge Disposition: Hospice/ Home Discharge Time: > 30 minutes Discharge Instructions DIET: Follow Instructions for: Heart Healthy Diet, Diabetic Diet Activities you can perform: Regular-No Restrictions Gómez Ayers MD Dec 11, 2016 10:55
[2016-12-11 12:00] VITALS: BP 103/72; PULSE 96; RESP 19; TEMP 98.2; O2SAT 92
[2016-12-11] MEDS: POLYSACCHARIDE IRON COMPLEX 150 MG CAP PO SCH (12:38)
[2016-12-12] MEDS ORDERED: REMOVE OLD FENTANYL PATCH T-DERMAL SCH (09:00)
== END 2016-12-11 15:59 | disposition hospice, home (50) | DRG 689 ==
LOC: PHED 20:09 → PHEDA 22:27 → PH3A 12-09 00:28 → OBSVTOIN 12-09 10:09
PROVIDERS: ADMIT Hospitalist; ATTEND Hospitalist
DX: N39.0 Urinary tract infection, site not specified (principal); E43 Unspecified severe protein-calorie malnutrition; N17.9 Acute kidney failure, unspecified; C79.51 Secondary malignant neoplasm of bone; E11.22 Type 2 diabetes mellitus with diabetic chronic kidney disease; E11.40 Type 2 diabetes mellitus with diabetic neuropathy, unspecified; I48.2 Chronic atrial fibrillation; E83.42 Hypomagnesemia; E11.51 Type 2 diabetes mellitus with diabetic peripheral angiopathy without gangrene; E83.51 Hypocalcemia; Z85.46 Personal history of malignant neoplasm of prostate; Z85.51 Personal history of malignant neoplasm of bladder; Z85.828 Personal history of other malignant neoplasm of skin; Z92.3 Personal history of irradiation; G47.30 Sleep apnea, unspecified; M54.9 Dorsalgia, unspecified; G89.29 Other chronic pain; E78.00 Pure hypercholesterolemia, unspecified; M19.90 Unspecified osteoarthritis, unspecified site; E66.9 Obesity, unspecified; J32.9 Chronic sinusitis, unspecified; I12.9 Hypertensive chronic kidney disease with stage 1 through stage 4 chronic kidney disease, or unspecified chronic kidney disease; N18.3 Chronic kidney disease, stage 3 (moderate); E78.5 Hyperlipidemia, unspecified; W18.30XA Fall on same level, unspecified, initial encounter; Y93.89 Activity, other specified; Y92.003 Bedroom of unspecified non-institutional (private) residence as the place of occurrence of the external cause; Y99.9 Unspecified external cause status; Z96.652 Presence of left artificial knee joint; Z88.5 Allergy status to narcotic agent; Z86.14 Personal history of Methicillin resistant Staphylococcus aureus infection; Z79.4 Long term (current) use of insulin; R29.6 Repeated falls; Z86.19 Personal history of other infectious and parasitic diseases; Z90.5 Acquired absence of kidney; Z87.891 Personal history of nicotine dependence; R32 Unspecified urinary incontinence; D50.9 Iron deficiency anemia, unspecified; N32.9 Bladder disorder, unspecified; R97.20 Elevated prostate specific antigen [PSA]
CPT/HCPCS: 70450; 71010; 71250; 73502; 74176; 80048; 80053; 81001; 82306; 82310; 82550; 82607; 82652; 82728; 82747; 82948; 83540; 83550; 83605; 83615; 83735; 83880; 83970; 84153; 84155; 84484; 85025; 85044; 85610; 85730; 87040; 87086; 87641; 93005; 96361; 96374; G0378; G8987-GP; G8988-GP; J0610; J0696; J0713; J1815; J3475; J7030

== ENCOUNTER 2016-12-17 04:32 | Observation (INO) | payer MEDICARE, BC ==
[2016-12-17] VITALS (9 sets, daily range): BP systolic 92–151; BP diastolic 46–81; PULSE 75–136; RESP 16–24; TEMP 96.5–97.5; O2SAT 91–97
[~2016-12-17] VITALS: Ht 188 cm; Wt 120.5 kg
[~2016-12-17 04:32] MED LIST changes: -ASPI-110 PO; +CALC500C2 CHEW; -CLIN1CAP6 PO; +ENZA40CA PO; +METO25TA3 PO; -METO50TA PO; +MORP1TAB24 PO; -NOVOLOGP2 SQ; -OXYC15TA PO; +OXYC1TAB36 PO; +PROC10TA PO; -ZYTI250T PO; -accucheck; -needles; -test strips; -wheelchair
[2016-12-17] MEDS ORDERED: SODIUM CHLOR 0.9% 1000 ML INJ 1,000 ML IV SCH (04:39)
[2016-12-17] MEDS ORDERED: SODIUM CHLORIDE 0.9% FLUSH 10 ML FLUSH IV FLUSH PRN ×2 (04:45→07:15)
[2016-12-17] MEDS ORDERED: MORPHINE SULFATE 4 MG/ML INJ IV PUSH ONE (04:45)
[2016-12-17] MEDS ORDERED: ONDANSETRON HCL 4 MG/2 ML VIAL IVP ONE (04:45)
[2016-12-17] MEDS ORDERED: MORPHINE SULFATE 8 MG/ML INJ IV PUSH ONE (05:00)
--- NOTE | 2016-12-17 05:24 | PD ---
HPI Chief Complaint: GI Complaint Time Seen by Provider: 04:39 Travel History International Travel<30 days: No Contact w/Intl Traveler<30days: No Traveled to known affect area: No History of Present Illness HPI The patient is an 81-year-old male that has a history of prostate cancer metastatic to the bone. He is followed by Dr. Marcos for this. He is on hospice. He was vomiting coffee-ground colored vomitus tonight. He also has abdominal pain. The patient does have a history of atrial fibrillation. He is not on any anticoagulant other than baby aspirin. 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 DENIES) Thyroid Disease: No Past Surgical History Abdominal Surgery: Yes (ABDOMINAL TUMOR 13 POUNDS REMOVED FOR CA) AICD: No Body Medical Devices: STIMULATOR FOR BACK PAIN ([place]) Cardiac Surgery: No Ear Surgery: No Endocrine Surgery: No Eye Surgery: No Genitourinary Surgery: Yes (prostectomy) Gynecologic Surgery: No Joint Replacement: Yes (bilat knee replacement) Oral Surgery: No Pacemaker: No Prostatectomy: Yes (1991) Thoracic Surgery: No Tonsillectomy: Yes Other Surgery: Yes (PROSTATECTOMY) Social History Alcohol Use: Yes (OCCASSIONALLY) Tobacco Use: No Substance Use: No Allergies-Medications (Allergen,Severity, Reaction): Coded Allergies: Codeine (Verified Allergy, Severe, Anaphylaxis, 12/17/16) *MDRO Multi-Drug Resistant Organism (Unverified Allergy, Unknown, 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 Reported Meds & Prescriptions Reported Meds & Active Scripts Active Furosemide 20 Mg Tab 20 Mg PO DAILY Amlodipine (Amlodipine Besylate) 10 Mg Tab 10 Mg PO DAILY Reported Aspirin 81 Low Dose (Aspirin) 81 Mg Chew 81 Mg CHEW DAILY Poly-Iron 150 Forte (Iron Polysaccharide [id number]) 150-25MG-1 Mcg Cap 1 Tab PO BID Oxycodone (Oxycodone HCl) 20 Mg Tab 20 Mg PO Q4HR PRN Docusate Sodium 100 Mg Cap 1-2 Tab PO BID PRN Calcium (Calcium Carbonate-Cholecalciferol) 1,250-100 Mg-Unit Chew 1,000 Mg CHEW BID Prochlorperazine Maleate 10 Mg Tab 10 Mg PO Q6H PRN Oxycodone-Acetaminophen 10-325 mg Tab 1 Tab PO Q4HR PRN Metoprolol Tartrate 25 Mg Tab 25 Mg PO BID Fentanyl Patch 72 HR (Fentanyl) 75 Mcg/Hr Patch 75 Mcg T-DERMAL Q72H Remove old patch when new one placed. Novolog Penfill Inj (Insulin Aspart) 300 Unit/3 Ml Pen 40 Units SQ TIDAC PRN Novolin R Inj (Insulin Human Regular) 1,000 Unit/10 Ml Vial 0 SQ DIRECTED 0-149 = 0 Novolin R 150-199 = 5U 200-249 = 7U 250-299 = 10U 300-349 = 12U >349 = 15U Review of Systems Except as stated in HPI: all other systems reviewed are Neg Physical Exam Narrative GENERAL: The patient is alert, oriented 3 in moderate apparent distress with his abdominal pain. The patient is incontinent of feces and passed liquid dark brown feces on the bed. SKIN: Focused skin assessment warm/dry. Multiple sores are present over the patient's body, particularly on the arms. HEAD: Atraumatic. Normocephalic. EYES: Pupils equal and round. No scleral icterus. No injection or drainage. ENT: No nasal bleeding or discharge. Mucous membranes pink and moist. NECK: Trachea midline. No JVD. CARDIOVASCULAR: Atrial fibrillation with rapid ventricular response. No murmur appreciated. RESPIRATORY: No accessory muscle use. Clear to auscultation. Breath sounds equal bilaterally. GASTROINTESTINAL: Abdomen soft, with tenderness all 4 quadrants to direct palpation, slightly distended. Hepatic and splenic margins not palpable. MUSCULOSKELETAL: No obvious deformities. No clubbing. No cyanosis. No edema. NEUROLOGICAL: Awake and alert. No obvious cranial nerve deficits. Motor grossly within normal limits. Normal speech. PSYCHIATRIC: Appropriate mood and affect; insight and judgment normal. Data Data Last Documented VS Vital Signs Date Time Temp Pulse Resp B/P Pulse Ox O2 Delivery O2 Flow Rate FiO2 12/17/16 06:39 126 20 112/62 96 Nasal Cannula 2 12/17/16 04:45 97.5 Orders Complete Blood Count With Diff (12/17/16 04:39) Comprehensive Metabolic Panel (12/17/16 04:39) Lipase (12/17/16 04:39) Urinalysis - C+S If Indicated (12/17/16 04:39) Iv Access Insert/Monitor (12/17/16 04:39) Ecg Monitoring (12/17/16 04:39) Oximetry (12/17/16 04:39) Ondansetron Inj (Zofran Inj) (12/17/16 04:45) Sodium Chlor 0.9% 1000 Ml Inj (Ns 1000 M (12/17/16 04:39) Sodium Chloride 0.9% Flush (Ns Flush) (12/17/16 04:45) Electrocardiogram (12/17/16 04:39) Oral Contrast - Adult (12/17/16 04:41) Morphine Inj (Morphine Inj) (12/17/16 05:00) Bag, Fecal Mgmt System (12/17/16 04:59) Urinary Catheter Insert/Apply (12/17/16 05:13) Lactic Acid (12/17/16 05:24) Diatrizoate Liq ( Gastroview Liq) (12/17/16 05:56) Urine Culture (12/17/16 06:30) Vascular Access Team Consult/P PRN (12/17/16 07:09) Vascular Poc Ultrasound (12/17/16 ) Labs Laboratory Tests Test 12/17/16 12/17/16 05:30 06:30 White Blood Count 17.1 TH/MM3 Red Blood Count 4.95 MIL/MM3 Hemoglobin 10.8 GM/DL Hematocrit 34.5 % Mean Corpuscular Volume 69.8 FL Mean Corpuscular Hemoglobin 21.8 PG Mean Corpuscular Hemoglobin 31.3 % Concent Red Cell Distribution Width 18.1 % Platelet Count 457 TH/MM3 Mean Platelet Volume 8.0 FL Neutrophils (%) (Auto) 91.0 % Lymphocytes (%) (Auto) 2.8 % Monocytes (%) (Auto) 4.4 % Eosinophils (%) (Auto) 0.3 % Basophils (%) (Auto) 1.5 % Neutrophils # (Auto) 15.4 TH/MM3 Lymphocytes # (Auto) 0.5 TH/MM3 Monocytes # (Auto) 0.8 TH/MM3 Eosinophils # (Auto) 0.1 TH/MM3 Basophils # (Auto) 0.3 TH/MM3 CBC Comment AUTO DIFF Differential Comment AUTO DIFF CONFIRMED Platelet Estimate HIGH Platelet Morphology Comment NORMAL Ovalocytes 1+ Sodium Level 140 MEQ/L Potassium Level 3.7 MEQ/L Chloride Level 100 MEQ/L Carbon Dioxide Level 24.0 MEQ/L Anion Gap 16 MEQ/L Blood Urea Nitrogen 34 MG/DL Creatinine 1.60 MG/DL Estimat Glomerular Filtration 42 ML/MIN Rate Random Glucose 279 MG/DL Lactic Acid Level 3.1 mmol/L Calcium Level 7.1 MG/DL Protein Corrected Calcium 7.6 MG/DL Total Bilirubin 0.4 MG/DL Aspartate Amino Transf 16 U/L (AST/SGOT) Alanine Aminotransferase 10 U/L (ALT/SGPT) Alkaline Phosphatase 334 U/L Total Protein 6.1 GM/DL Albumin 1.9 GM/DL Lipase 60 U/L Urine Collection Type CLEAN CATCH Urine Color RED Urine Turbidity CLOUDY Urine pH 6.5 Urine Specific [place] 1.020 Urine Protein 300 OR GREATER mg/dL Urine Glucose (UA) 100 mg/dL Urine Ketones 40 mg/dL Urine Occult Blood LARGE Urine Nitrite POS Urine Bilirubin NEG Urine Leukocyte Esterase LARGE Urine RBC INNUM /hpf Urine WBC INNUM /hpf Urine WBC Clumps MANY Microscopic Urinalysis Comment CULTURE INDICATED MDM Medical Decision Making Medical Screen Exam Complete: Yes Emergency Medical Condition: Yes Medical Record Reviewed: Yes Differential Diagnosis Small bowel obstruction, pancreatitis, electrolyte disorder, dehydration, sepsis , renal insufficiency, intractable vomiting, intractable abdominal pain Narrative Course The patient had severe abdominal pain as well as nausea and vomiting when he came in. The patient then started passing dark brown guaiac positive material from rectum and his pain subsided along with the nausea and vomiting. The patient completely soiled the bed and a rectal tube and collection system was put in. The patient is passing gas and stool from the rectal tube and feels much better. A Valdovinos catheter was put in. It is now 0700 and the patient is able to tolerate by mouth liquids. Physician Communication Physician Communication I discussed the patient with Dr. Amy Dixon and Dr. Kaye. The patient will be admitted to Dr. Kaye here at [place]. Diagnosis Primary Impression: Intractable abdominal pain Additional Impressions: Intractable vomiting with nausea Leukocytosis Bloody stools Elevated lactic acid level Admitting Information Admitting Physician Requests: Observation Dany Sharma MD Dec 17, 2016 05:24
[2016-12-17 05:43] LABS: AUTOMATED NEUTROPHIL # 15.4 TH/MM3 (1.8-7.7); BASOPHIL # 0.3 TH/MM3 (0-0.2); BASOPHIL % 1.5 % (0.0-2.0); EOSINOPHIL # 0.1 TH/MM3 (0-0.4); EOSINOPHIL % 0.3 % (0.0-4.0); HEMATOCRIT 34.5 % (39.0-51.0); LYMPH % 2.8 % (9.0-44.0); LYMPHOCYTE # 0.5 TH/MM3 (1.0-4.8); MEAN CELL VOLUME 69.8 FL (80.0-100.0); MEAN CORPUSCULAR HEMOGLOBIN 21.8 PG (27.0-34.0); MEAN CORPUSCULAR HGB CONC 31.3 % (32.0-36.0); MONO % 4.4 % (0.0-8.0); PLATELET COUNT 457 TH/MM3 (150-450); RED BLOOD COUNT 4.95 MIL/MM3 (4.50-5.90); RED CELL DISTRIBUTION WIDTH 18.1 % (11.6-17.2); WHITE BLOOD COUNT 17.1 TH/MM3 (4.0-11.0)
[2016-12-17 05:44] LABS: HEMO FLAGS AUTO DIFF
[2016-12-17 05:54] LABS: POTASSIUM 3.7 MEQ/L (3.5-5.1)
[2016-12-17] MEDS ORDERED: DIATRIZOATE MEGLUM/DIATRIZOATE SOD 9 ML CUP ONE (05:56)
[2016-12-17 05:59] LABS: OVALOCYTES 1+ (NORMAL); PLATELET ESTIMATE SMEAR HIGH (NORMAL); PLATELET MORPHOLOGY NORMAL (NORMAL); SCAN/DIFF AUTO DIFF CONFIRMED
[2016-12-17 06:25] LABS: CALCIUM-PROTEIN CORRECTED 7.6 MG/DL (8.5-10.1); TOTAL BILIRUBIN ADULT 0.4 MG/DL (0.2-1.0)
[2016-12-17 06:53] LABS: BLOOD, URINE LARGE (NEG); GLUCOSE,URINE 100 mg/dL (NEG); KETONE, URINE 40 mg/dL (NEG); PH, URINE 6.5 (5.0-8.5)
[2016-12-17 06:56] LABS: NITRITE,URINE POS (NEG)
[2016-12-17 06:57] LABS: METHOD OF COLLECTION CLEAN CATCH; URINE COLOR RED (YELLW/STRAW)
[2016-12-17 06:58] LABS: COMMENT (UR) CULTURE INDICATED; CULTURE IF INDICATED CULTURE INDICATED; RBC, URINE INNUM /hpf (0-3); WBC, URINE INNUM /hpf (0-5)
[2016-12-17] MEDS ORDERED: POLY150C2 PO (07:10)
[2016-12-17] MEDS: SODIUM CHLOR 0.9% 1000 ML INJ 1,000 ML IV SCH ×3 (07:10→21:16)
[2016-12-17] MEDS ORDERED: ASPI81CH3 CHEW (07:10)
[2016-12-17] MEDS ORDERED: OXYC-396 PO (07:10)
[2016-12-17] MEDS ORDERED: DOCU100C PO (07:10)
[2016-12-17] MEDS ORDERED: ONDANSETRON HCL 4 MG/2 ML VIAL IVP PRN (07:15)
[2016-12-17] MEDS ORDERED: BISACODYL 10 MG SUPP RECTAL PRN (07:15)
[2016-12-17] MEDS ORDERED: SENNOSIDES 8.6 MG TAB PO PRN (07:15)
[2016-12-17] MEDS ORDERED: LACTULOSE SYRUP 20 GM/30 ML CUP PO PRN (07:15)
[2016-12-17] MEDS ORDERED: ACETAMINOPHEN 325 MG TAB PO PRN (07:15)
[2016-12-17] MEDS ORDERED: MAGNESIUM HYDROXIDE SUSP 30 ML CUP PO PRN (07:15)
[2016-12-17] MEDS ORDERED: NALOXONE HCL 0.4 MG/ML AMP IV PRN (07:15)
[2016-12-17] MEDS: SODIUM CHLORIDE 0.9% FLUSH 10 ML FLUSH IV FLUSH SCH ×2 (09:00→20:46)
[2016-12-17] MEDS: DOCUSATE SODIUM 50 MG/SENNA 8.6 MG TAB PO SCH ×2 (09:00→21:20)
--- NOTE | 2016-12-17 14:52 | HHI.HP ---
HPI Service [facility] Primary Care Physician Galen Marcos III, MD Admission Diagnosis intractable abdominal pain/vomiting Diagnoses: Chief Complaint: Coffee ground vomiting. Travel History International Travel<30 Days: No Contact w/Intl Traveler <30 Da: No Traveled to Known Affected Are: No Sepsis Criteria SIRS Criteria (2 or more): Heart rate over 90, WBC > 54857, < 4000 or > 10% bands Sepsis Criteria (SIRS+source): Infect source susp/known Severe Sepsis (+one): Lactate >2 History of Present Illness Mr. Heaton is a pleasant 81-year-old male with history of prostate cancer with metastasis to the bone who presented to the emergency department on 12/17/2016 due to coffee ground emesis that started on 12/16/2016. Almost all night patient had multiple episodes of brown vomitus which patient's describes as coffee ground like. He also had abdominal pain but no fever or chills. He did not have any diarrhea at home. However after he isn't to the emergency department he started having loose dark bowel movements. He denies any dysuria or hematuria. No cough, shortness of breath. On arrival temperature 97.5, pulse 108, respiration 24, blood pressure 124/72, pulse oximetry 97%. Patient's heart rate went up to 130s. Lab work indicated leukocytosis with WBC count 17.1 K, BUN 34 creatinine 1.60 lactic acid 3.1, urinalysis indicates possible UTI. Patient was under hospice and would like to continue to be under hospice. Given sepsis with possible UTI, we will treat patient with IV antibiotics today. Patient agrees with this plan. Review of Systems Except as stated in HPI: all other systems reviewed are Neg Past Family Social History Past Medical History Prostate cancer with metastasis to the bone. Diabetes mellitus Atrial fibrillation Bladder cancer Basal cell carcinoma Squamous cell carcinoma Past Surgical History Skin cancer removed from chest, knee replacement Reported Medications Furosemide 20 Mg Tab 20 Mg PO DAILY Amlodipine (Amlodipine Besylate) 10 Mg Tab 10 Mg PO DAILY Reported Aspirin 81 Low Dose (Aspirin) 81 Mg Chew 81 Mg CHEW DAILY Poly-Iron 150 Forte (Iron Polysaccharide [id number]) 150-25MG-1 Mcg Cap 1 Tab PO BID Oxycodone (Oxycodone HCl) 20 Mg Tab 20 Mg PO Q4HR PRN Docusate Sodium 100 Mg Cap 1-2 Tab PO BID PRN Calcium (Calcium Carbonate-Cholecalciferol) 1,250-100 Mg-Unit Chew 1,000 Mg CHEW BID Prochlorperazine Maleate 10 Mg Tab 10 Mg PO Q6H PRN Oxycodone-Acetaminophen 10-325 mg Tab 1 Tab PO Q4HR PRN Metoprolol Tartrate 25 Mg Tab 25 Mg PO BID Fentanyl Patch 72 HR (Fentanyl) 75 Mcg/Hr Patch 75 Mcg T-DERMAL Q72H Remove old patch when new one placed. 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 Social History Denies using tobacco, alcohol, illicit drugs. Physical Exam Vital Signs Vital Signs Date Time Temp Pulse Resp B/P Pulse Ox O2 Delivery O2 Flow Rate FiO2 12/17/16 12:00 96.5 75 22 151/81 96 12/17/16 08:00 97.0 136 20 130/65 91 12/17/16 07:45 101 18 112/68 96 Nasal Cannula 2 12/17/16 06:39 126 20 112/62 96 Nasal Cannula 2 12/17/16 06:09 118 20 114/70 12/17/16 05:39 130 18 97/70 97 12/17/16 04:45 97.5 108 24 124/72 97 12/17/16 04:45 20 Physical Exam GENERAL: This is a well-nourished, well-developed patient, in no apparent distress. SKIN: No rashes, ecchymoses or lesions. Warm and dry. HEAD: Atraumatic. Normocephalic. No temporal or scalp tenderness. EYES: Pupils equal round and reactive. No injection or drainage. ENT: Nose without bleeding, purulent drainage or septal hematoma. Airway patent. NECK: Trachea midline. No lymphadenopathy. Supple, nontender, no meningeal signs. CARDIOVASCULAR: Regular rhythm, tachycardia without murmurs, gallops, or rubs. No JVD. RESPIRATORY: Clear to auscultation. Breath sounds equal bilaterally. No wheezes , rales, or rhonchi. GASTROINTESTINAL: Abdomen soft, non-tender, nondistended. No guarding. MUSCULOSKELETAL: Extremities without clubbing, cyanosis, or edema. NEUROLOGICAL: Awake and alert. Cranial nerves II through XII intact. No focal neurological deficits. Normal speech. Laboratory Laboratory Tests Test 12/17/16 12/17/16 05:30 06:30 White Blood Count 17.1 Red Blood Count 4.95 Hemoglobin 10.8 Hematocrit 34.5 Mean Corpuscular Volume 69.8 Mean Corpuscular Hemoglobin 21.8 Mean Corpuscular Hemoglobin 31.3 Concent Red Cell Distribution Width 18.1 Platelet Count 457 Mean Platelet Volume 8.0 Neutrophils (%) (Auto) 91.0 Lymphocytes (%) (Auto) 2.8 Monocytes (%) (Auto) 4.4 Eosinophils (%) (Auto) 0.3 Basophils (%) (Auto) 1.5 Neutrophils # (Auto) 15.4 Lymphocytes # (Auto) 0.5 Monocytes # (Auto) 0.8 Eosinophils # (Auto) 0.1 Basophils # (Auto) 0.3 CBC Comment AUTO DIFF Differential Comment AUTO DIFF CONFIRMED Platelet Estimate HIGH Platelet Morphology Comment NORMAL Ovalocytes 1+ Sodium Level 140 Potassium Level 3.7 Chloride Level 100 Carbon Dioxide Level 24.0 Anion Gap 16 Blood Urea Nitrogen 34 Creatinine 1.60 Estimat Glomerular Filtration 42 Rate Random Glucose 279 Lactic Acid Level 3.1 Calcium Level 7.1 Protein Corrected Calcium 7.6 Total Bilirubin 0.4 Aspartate Amino Transf 16 (AST/SGOT) Alanine Aminotransferase 10 (ALT/SGPT) Alkaline Phosphatase 334 Total Protein 6.1 Albumin 1.9 Lipase 60 Urine Collection Type CLEAN CATCH Urine Color RED Urine Turbidity CLOUDY Urine pH 6.5 Urine Specific [place] 1.020 Urine Protein 300 OR GREATER Urine Glucose (UA) 100 Urine Ketones 40 Urine Occult Blood LARGE Urine Nitrite POS Urine Bilirubin NEG Urine Leukocyte Esterase LARGE Urine RBC INNUM Urine WBC INNUM Urine WBC Clumps MANY Microscopic Urinalysis Comment CULTURE INDICATED Date/Time Procedure Status Source Growth 12/17/16 06:30 Urine Culture Received Urine Clean Catch Pending Result Diagram: [id number] Assessment and Plan Problem List: (1) Severe sepsis ICD Code: A41.9 Status: Acute (2) UTI (lower urinary tract infection) ICD Code: N39.0 Status: Acute (3) Atrial fibrillation ICD Code: I48.91 (4) DM (diabetes mellitus) ICD Code: E11.9 Status: Acute (5) Prostate cancer metastatic to bone ICD Code: C61 Status: Acute Assessment and Plan Mr. Heaton is a pleasant 81-year-old male with a history of metastatic prostate cancer, atrial fibrillation, diabetes mellitus who presents to the emergency department today due to coffee ground emesis that started on . After he came to the emergency department he also started having loose dark bowel movement. He was found to have severe sepsis with possible urinary tract infection. - Upper GI bleed - Coffee ground emesis, loose dark stool - likely due to Upper GI bleed. No coffee ground emesis today. - We'll stop aspirin and avoid any NSAIDs - Start Protonix 40 mg twice a day. - We'll monitor H&H. - Patient is currently under hospice. He has had endoscopic studies before. - At this point his hemoglobin is 10.8. No plans to undergo endoscopic studies. - Severe sepsis likely due to urinary tract infection - Urinary tract infection - Follow culture and sensitivity. Start ceftriaxone 1 g every 24 hours. - Atrial fibrillation - no antibiotic ablation at this point. Continue metoprolol for rate control. - Diabetes mellitus - start Levemir 7 units daily at bedtime and sliding scale insulin. - Metastatic prostate cancer with metastasis to the bone. - Patient is currently under hospice care. - Discussed with hospice service. Likely discharge to hospice on 12/18/2016. DNR. Anny Kaye DO Dec 17, 2016 2:52 pm
[2016-12-17] MEDS ORDERED: PROCHLORPERAZINE MALEATE 10 MG TAB PO PRN (15:30)
[2016-12-17] MEDS ORDERED: PANTOPRAZOLE SOD 40 MG DELAYED RELEASE TAB PO ONE (15:30)
--- NOTE | 2016-12-17 15:40 | EKG ---
Date Performed: 12/17/2016 Time Performed: 05:31:54 PTAGE: 81 years EKG: SINUS TACHYCARDIA WITH FREQUENT ECTOPIC PREMATURE COMPLEXES MARKED LEFT AXIS DEVIATION ADELINA SHANNON CONSISTENT WITH PULMONARY DISEASE POSSIBLE RIGHT VENTRICULAR CONDUCTION DELAY ABNORMAL ECG PREVIOUS TRACING : 12/08/2016 20.43 DOCTOR: Sha Link Interpretating Date/Time 12/17/2016 15:38:04
[2016-12-17] MEDS ORDERED: GLUCAGON 1 MG/ML VIAL OTHER PRN (15:45)
[2016-12-17] MEDS ORDERED: DEXTROSE 50% IN WATER 50 ML VIAL(D50) IV PRN (15:45)
[2016-12-17] MEDS: cefTRIAXone INJ 1,000 MG in SODIUM CHLORIDE 0.9% INJ 100 ML IV SCH (16:32)
[2016-12-17] MEDS: INSULIN ASPART SUPPLEMENTAL SCALE SQ SCH ×2 (16:38→21:00)
[2016-12-17] MEDS: oxyCODONE/ACETAMINOPHEN 5 MG/325 MG TAB PO PRN (18:53)
[2016-12-17] MEDS: METOPROLOL TARTRATE 25 MG TAB PO SCH (21:20)
[2016-12-17] MEDS: CALCIUM CARBONATE 1.25 GM (CA 500 MG) TAB PO SCH (21:20)
[2016-12-17] MEDS: INSULIN DETEMIR 100 UNITS/ML VIAL SQ SCH (21:26)
[2016-12-18] VITALS: BP 111/58; PULSE 102; RESP 18; TEMP 97.9; O2SAT 94
[2016-12-18 06:07] LABS: AUTOMATED NEUTROPHIL # 8.6 TH/MM3 (1.8-7.7); BASOPHIL % 0.3 % (0.0-2.0); EOSINOPHIL # 0.1 TH/MM3 (0-0.4); EOSINOPHIL % 0.7 % (0.0-4.0); HEMATOCRIT 28.4 % (39.0-51.0); LYMPH % 7.8 % (9.0-44.0); LYMPHOCYTE # 0.8 TH/MM3 (1.0-4.8); MEAN CORPUSCULAR HEMOGLOBIN 21.3 PG (27.0-34.0); MEAN CORPUSCULAR HGB CONC 30.9 % (32.0-36.0); MONO % 5.3 % (0.0-8.0); NEUT % 85.9 % (16.0-70.0); PLATELET COUNT 311 TH/MM3 (150-450); RED BLOOD COUNT 4.11 MIL/MM3 (4.50-5.90); RED CELL DISTRIBUTION WIDTH 17.7 % (11.6-17.2); WHITE BLOOD COUNT 9.9 TH/MM3 (4.0-11.0)
[2016-12-18 06:09] LABS: HEMO FLAGS AUTO DIFF; POTASSIUM 3.3 MEQ/L (3.5-5.1)
[2016-12-18 06:28] LABS: BICARBONATE 27.5 MEQ/L (21.0-32.0)
[2016-12-18 06:35] LABS: SCAN/DIFF AUTO DIFF CONFIRMED
[2016-12-18 06:41] LABS: CALCIUM-PROTEIN CORRECTED 7.3 MG/DL (8.5-10.1)
[2016-12-18] MEDS: INSULIN ASPART SUPPLEMENTAL SCALE SQ SCH ×4 (07:00→20:26)
[2016-12-18] MEDS ORDERED: POTASSIUM CHLORIDE 20 MEQ CONTROLLED RELEASE TAB PO ONE (08:00)
[2016-12-18] MEDS ORDERED: CALCIUM GLUCONATE INJ 2 GM in SODIUM CHLORIDE 0.9% INJ 100 ML IV ONE (09:00)
[2016-12-18] MEDS: DOCUSATE SODIUM 50 MG/SENNA 8.6 MG TAB PO SCH ×2 (09:00→20:20)
[2016-12-18] MEDS: SODIUM CHLORIDE 0.9% FLUSH 10 ML FLUSH IV FLUSH SCH ×2 (09:00→19:46)
[2016-12-18] MEDS: CALCIUM CARBONATE 1.25 GM (CA 500 MG) TAB PO SCH ×2 (09:23→20:20)
[2016-12-18] MEDS: PANTOPRAZOLE SOD 40 MG DELAYED RELEASE TAB PO SCH ×2 (09:23→20:20)
[2016-12-18] MEDS: FUROSEMIDE 20 MG TAB PO SCH (09:23)
[2016-12-18] MEDS: METOPROLOL TARTRATE 25 MG TAB PO SCH ×2 (09:24→20:20)
[2016-12-18 09:48] VITALS: BP 97/59; PULSE 112; RESP 16; TEMP 96.4; O2SAT 95
[2016-12-18] MEDS ORDERED: POTASSIUM CHLORIDE 20 MEQ CONTROLLED RELEASE TAB PO SCH (10:00)
[2016-12-18] MEDS ORDERED: CALCIUM GLUCONATE INJ 1 GM in SODIUM CHLORIDE 0.9% INJ 100 ML IV ONE (11:00)
[2016-12-18] MEDS ORDERED: CIPR250T52 PO (12:06)
--- NOTE | 2016-12-18 12:07 | HHI.PR ---
Subjective Remarks Follow up for GI bleed, probable UTI. Patient is doing well. No acute concerns. Denies any further N/V. No fever, chills. Objective Vitals Vital Signs Date Time Temp Pulse Resp B/P Pulse Ox O2 Delivery O2 Flow Rate FiO2 12/18/16 09:48 96.4 112 16 97/59 95 12/18/16 00:00 97.9 102 18 111/58 94 12/17/16 20:00 96.8 109 16 92/46 94 12/17/16 19:53 18 12/17/16 16:00 97.4 120 20 110/58 94 I/O 12/17/16 12/17/16 12/17/16 12/18/16 12/18/16 12/18/16 07:00 15:00 23:00 07:00 15:00 23:00 Intake Total 880 ml 1508 ml 867 ml Output Total 1030 ml 1000 ml Balance -150 ml 508 ml 867 ml Intake Oral 480 ml 450 ml IV Total 400 ml 1058 ml 867 ml Output Urine Total 30 ml 100 ml Stool Total 1000 ml 900 ml # Bowel Movements 3 Result Diagram: 12/18/16 0548 12/18/16 0548 Objective Remarks GENERAL: Alert, NAD. SKIN: Warm and dry. HEAD: Normocephalic. EYES: No scleral icterus. No injection or drainage. NECK: Supple, trachea midline. No JVD or lymphadenopathy. CARDIOVASCULAR: Regular rate and rhythm without murmurs, gallops, or rubs. RESPIRATORY: Breath sounds equal bilaterally. No accessory muscle use. GASTROINTESTINAL: Abdomen soft, non-tender, nondistended. MUSCULOSKELETAL: No cyanosis, or edema. BACK: Nontender without obvious deformity. No CVA tenderness. Procedures None. A/P Problem List: (1) Severe sepsis ICD Code: A41.9 Status: Acute (2) UTI (lower urinary tract infection) ICD Code: N39.0 Status: Acute (3) Atrial fibrillation ICD Code: I48.91 (4) DM (diabetes mellitus) ICD Code: E11.9 Status: Acute (5) Prostate cancer metastatic to bone ICD Code: C61 Status: Acute Assessment and Plan Mr. Heaton is a pleasant 81-year-old male with a history of metastatic prostate cancer, atrial fibrillation, diabetes mellitus who presents to the emergency department today due to coffee ground emesis that started on . After he came to the emergency department he also started having loose dark bowel movement. He was found to have severe sepsis with possible urinary tract infection. - Upper GI bleed - Coffee ground emesis, loose dark stool - likely due to Upper GI bleed. No coffee ground emesis today. - Discontinued aspirin and avoid any NSAIDs - Continue Protonix 40 mg twice a day. - We'll monitor H&H. - Patient is currently under hospice. He has had endoscopic studies before. - Hgb 10.8 --> 8.8 today. Will repeat H&H in the morning. - Will continue Ceftriaxone while patient is in the hospital due to possible upper GI bleed. - Severe sepsis likely due to urinary tract infection - Urinary tract infection - Follow culture and sensitivity. CX negative. Will stop Abx. - Hypocalcemia - Replaced with IV Calcium Gluconate. - Will check Magnesium level. If low, we will replace with IV Mag sulfate. - Atrial fibrillation - no anticoagulation at this point. Continue metoprolol for rate control. - Diabetes mellitus - Increase Levemir from 7 units to 10 units daily at bedtime and sliding scale insulin. - Metastatic prostate cancer with metastasis to the bone. - Patient is currently under hospice care. - Discussed with hospice service. Likely discharge to hospice on 12/19/2016 to home with hospice. DNR. Anny Kaye DO Dec 18, 2016 12:07 pm
[2016-12-18 12:30] VITALS: BP 107/64; PULSE 96; RESP 16; TEMP 96.3; O2SAT 97
[2016-12-18] MEDS: SODIUM CHLOR 0.9% 1000 ML INJ 1,000 ML IV SCH ×2 (13:10→17:44)
[2016-12-18] MEDS: oxyCODONE/ACETAMINOPHEN 5 MG/325 MG TAB PO PRN ×2 (13:57→20:24)
[2016-12-18] MEDS ORDERED: PANT40TA3 PO (14:33)
[2016-12-18] MEDS: cefTRIAXone INJ 1,000 MG in SODIUM CHLORIDE 0.9% INJ 100 ML IV SCH (15:24)
[2016-12-18 17:27] VITALS: BP 121/65; PULSE 120; RESP 15; TEMP 98.3; O2SAT 94
[2016-12-18] MEDS ORDERED: fentaNYL 100 MCG/HR PATCH T-DERMAL SCH (18:00)
[2016-12-18 20:00] VITALS: BP 112/68; PULSE 126; RESP 18; TEMP 96.7; O2SAT 94
[2016-12-18] MEDS: INSULIN DETEMIR 100 UNITS/ML VIAL SQ SCH (20:26)
[2016-12-19] VITALS: BP 108/65; PULSE 108; RESP 19; TEMP 96.6; O2SAT 95
[2016-12-19] MEDS: oxyCODONE/ACETAMINOPHEN 5 MG/325 MG TAB PO PRN ×2 (01:04→08:34)
[2016-12-19] MEDS: INSULIN ASPART SUPPLEMENTAL SCALE SQ SCH ×3 (06:02→16:25)
[2016-12-19 07:32] LABS: REVIEW FLAG FINAL
[2016-12-19 08:00] VITALS: BP 128/75; PULSE 108; RESP 22; TEMP 97.2; O2SAT 93
[2016-12-19] MEDS: FUROSEMIDE 20 MG TAB PO SCH (08:27)
[2016-12-19] MEDS: PANTOPRAZOLE SOD 40 MG DELAYED RELEASE TAB PO SCH (08:27)
[2016-12-19] MEDS: METOPROLOL TARTRATE 25 MG TAB PO SCH (08:28)
[2016-12-19] MEDS: DOCUSATE SODIUM 50 MG/SENNA 8.6 MG TAB PO SCH (08:28)
[2016-12-19] MEDS: CALCIUM CARBONATE 1.25 GM (CA 500 MG) TAB PO SCH (08:29)
[2016-12-19] MEDS: SODIUM CHLORIDE 0.9% FLUSH 10 ML FLUSH IV FLUSH SCH (08:31)
[2016-12-19] MEDS ORDERED: cefTRIAXone INJ 1,000 MG in SODIUM CHLORIDE 0.9% INJ 100 ML IV SCH (09:00)
[2016-12-19] MEDS ORDERED: BACT800T5 PO (10:33)
--- NOTE | 2016-12-19 10:34 | HHI.DS ---
Discharge Summary Admission Date Dec 17, 2016 at 7:13 am Discharge Date: Dec 19, 2016 Admitting Diagnosis intractable abdominal pain/vomiting (1) Severe sepsis ICD Code: A41.9 (2) UTI (lower urinary tract infection) ICD Code: N39.0 (3) Atrial fibrillation ICD Code: I48.91 (4) DM (diabetes mellitus) ICD Code: E11.9 (5) Prostate cancer metastatic to bone ICD Code: C61 Procedures None. Brief History - From Admission Mr. Heaton is a pleasant 81-year-old male with history of prostate cancer with metastasis to the bone who presented to the emergency department on 12/17/2016 due to coffee ground emesis that started on 12/16/2016. Almost all night patient had multiple episodes of brown vomitus which patient's describes as coffee ground like. He also had abdominal pain but no fever or chills. He did not have any diarrhea at home. However after he isn't to the emergency department he started having loose dark bowel movements. He denies any dysuria or hematuria. No cough, shortness of breath. On arrival temperature 97.5, pulse 108, respiration 24, blood pressure 124/72, pulse oximetry 97%. Patient's heart rate went up to 130s. Lab work indicated leukocytosis with WBC count 17.1 K, BUN 34 creatinine 1.60 lactic acid 3.1, urinalysis indicates possible UTI. Patient was under hospice and would like to continue to be under hospice. Given sepsis with possible UTI, we will treat patient with IV antibiotics today. Patient agrees with this plan. CBC/BMP: 12/19/16 0637 12/18/16 0548 Significant Findings Laboratory Tests Test 12/17/16 12/17/16 12/18/16 12/19/16 05:30 06:30 05:48 06:37 White Blood Count 17.1 TH/MM3 (4.0-11.0) Hemoglobin 10.8 GM/DL 8.8 GM/DL 8.5 GM/DL (13.0-17.0) (13.0-17.0) (13.0-17.0) Hematocrit 34.5 % 28.4 % 27.0 % (39.0-51.0) (39.0-51.0) (39.0-51.0) Mean Corpuscular Volume 69.8 FL 69.0 FL (80.0-100.0) (80.0-100.0) Mean Corpuscular Hemoglobin 21.8 PG 21.3 PG (27.0-34.0) (27.0-34.0) Mean Corpuscular Hemoglobin 31.3 % 30.9 % Concent (32.0-36.0) (32.0-36.0) Red Cell Distribution Width 18.1 % 17.7 % (11.6-17.2) (11.6-17.2) Platelet Count 457 TH/MM3 (150-450) Neutrophils (%) (Auto) 91.0 % 85.9 % (16.0-70.0) (16.0-70.0) Lymphocytes (%) (Auto) 2.8 % 7.8 % (9.0-44.0) (9.0-44.0) Neutrophils # (Auto) 15.4 TH/MM3 8.6 TH/MM3 (1.8-7.7) (1.8-7.7) Lymphocytes # (Auto) 0.5 TH/MM3 0.8 TH/MM3 (1.0-4.8) (1.0-4.8) Basophils # (Auto) 0.3 TH/MM3 (0-0.2) Platelet Estimate HIGH (NORMAL) Ovalocytes 1+ (NORMAL) Anion Gap 16 MEQ/L (5-15) Blood Urea Nitrogen 34 MG/DL (7-18) 37 MG/DL (7-18) Creatinine 1.60 MG/DL 1.60 MG/DL (0.60-1.30) (0.60-1.30) Estimat Glomerular Filtration 42 ML/MIN (>89) 42 ML/MIN (>89) Rate Random Glucose 279 MG/DL 182 MG/DL (74-106) (74-106) Lactic Acid Level 3.1 mmol/L (0.4-2.0) Calcium Level 7.1 MG/DL 6.4 MG/DL (8.5-10.1) (8.5-10.1) Protein Corrected Calcium 7.6 MG/DL 7.3 MG/DL (8.5-10.1) (8.5-10.1) Alanine Aminotransferase 10 U/L (12-78) (ALT/SGPT) Alkaline Phosphatase 334 U/L (45-117) Total Protein 6.1 GM/DL 5.2 GM/DL (6.4-8.2) (6.4-8.2) Albumin 1.9 GM/DL (3.4-5.0) Lipase 60 U/L (73-393) Urine Color RED (YELLW/STRAW) Urine Turbidity CLOUDY (CLEAR) Urine Protein 300 OR GREATER mg/dL (NEG-TRACE) Urine Glucose (UA) 100 mg/dL (NEG) Urine Ketones 40 mg/dL (NEG) Urine Occult Blood LARGE (NEG) Urine Nitrite POS (NEG) Urine Leukocyte Esterase LARGE (NEG) Urine RBC INNUM /hpf (0-3) Urine WBC INNUM /hpf (0-5) Urine WBC Clumps MANY (NONE) Red Blood Count 4.11 MIL/MM3 (4.50-5.90) Potassium Level 3.3 MEQ/L (3.5-5.1) PE at Discharge GENERAL: Alert, NAD. SKIN: Warm and dry. HEAD: Normocephalic. EYES: No scleral icterus. No injection or drainage. NECK: Supple, trachea midline. No JVD or lymphadenopathy. CARDIOVASCULAR: Regular rate and rhythm without murmurs, gallops, or rubs. RESPIRATORY: Breath sounds equal bilaterally. No accessory muscle use. GASTROINTESTINAL: Abdomen soft, non-tender, nondistended. MUSCULOSKELETAL: No cyanosis, or edema. BACK: Nontender without obvious deformity. No CVA tenderness. Pt update on day of discharge Follow up for GI bleed. Patient is doing well. No further upper GI bleed, no diarrhea. No fever, chills. He does have a left heel redness. Hospital Course Mr. Heaton is a pleasant 81-year-old male with a history of metastatic prostate cancer, atrial fibrillation, diabetes mellitus who presents to the emergency department today due to coffee ground emesis that started on . After he came to the emergency department he also started having loose dark bowel movement. He was found to have severe sepsis with possible urinary tract infection. - Upper GI bleed - Coffee ground emesis, loose dark stool - likely due to Upper GI bleed. No coffee ground emesis today. - Discontinued aspirin and avoid any NSAIDs - Continue Protonix 40 mg twice a day. - H&H is stable. Hgb 8.5 on 12/19/2016. - Patient is currently under hospice. He has had endoscopic studies before. - Received Ceftriaxone while in the hospital. - Severe sepsis likely due to urinary tract infection - Urinary tract infection - Follow culture and sensitivity. CX negative. - Hypocalcemia - Replaced with IV Calcium Gluconate. - Mag is 1.9. - Atrial fibrillation - no anticoagulation at this point. Continue metoprolol for rate control. - Diabetes mellitus - continue home meds on discharge. Patient received Levemir and sliding scale insulin while in the hospital. - Metastatic prostate cancer with metastasis to the bone. - Patient is currently under hospice care. - Discussed with hospice service. Likely discharge to hospice on 12/19/2016 to home with hospice. - Left heel pressure ulcer - Will request Hospice to provide wound care. - Patient may benefit from an outpatient podiatry eval. DNR. Pt Condition on Discharge: Good Discharge Disposition: Hospice/ Home Discharge Time: > 30 minutes Discharge Instructions DIET: Follow Instructions for: As Tolerated, No Restrictions Activities you can perform: Regular-No Restrictions Follow up Referrals: Podiatry - 1 Week New Medications: Sulfamethoxazole-Trimethoprim (Bactrim DS) 800-160 Mg Tab 1 TAB PO BID Infection #14 Ref 0 TAB Pantoprazole (Pantoprazole) 40 Mg Tab 40 MG PO Q12HR GI bleed #60 TAB Continued Medications: Amlodipine (Amlodipine) 10 Mg Tab 10 MG PO DAILY Blood Pressure Management #90 Ref 3 TAB Aspirin (Aspirin 81 Low Dose) 81 Mg Chew 81 MG CHEW DAILY #30 TAB Calcium Carbonate-Cholecalciferol (Calcium) 1,250-100 Mg-Unit Chew 1000 MG CHEW BID TAB Docusate Sodium (Docusate Sodium) 100 Mg Cap 1-2 TAB PO BID PRN CONSTIPATION #60 Ref 0 CAP Fentanyl Patch 72 HR (Fentanyl Patch 72 HR) 75 Mcg/Hr Patch 75 MCG T-DERMAL Q72H Remove old patch when new one placed. Pain Management #10 Ref 0 PATCH Furosemide (Furosemide) 20 Mg Tab 20 MG PO DAILY #90 Ref 3 TAB Insulin Aspart Inj (Novolog Penfill Inj) 300 Unit/3 Ml Pen 40 UNITS SQ TIDAC PRN Blood Sugar Management #3 Ref 3 PEN Insulin Human Regular Inj (Novolin R Inj) 1,000 Unit/10 Ml Vial 0 SQ DIRECTED 0-149 = 0 Novolin R 150-199 = 5U 200-249 = 7U 250-299 = 10U 300 -349 = 12U >349 = 15U Blood Sugar Management #3 Ref 3 VIAL Iron Polysaccharide [id number] (Poly-Iron 150 Forte) 150-25MG-1 Mcg Cap 1 TAB PO BID Metoprolol Tartrate (Metoprolol Tartrate) 25 Mg Tab 25 MG PO BID #60 Ref 0 TAB Oxycodone (Oxycodone) 20 Mg Tab 20 MG PO Q4HR PRN PAIN SCALE 5 TO 10 Ref 0 TAB Oxycodone-Acetaminophen (Oxycodone-Acetaminophen) 10-325 mg Tab 1 TAB PO Q4HR PRN PAIN SCALE 3 TO 5 Ref 0 TAB Prochlorperazine Maleate (Prochlorperazine Maleate) 10 Mg Tab 10 MG PO Q6H PRN NAUSEA OR VOMITING Ref 0 TAB Anny Kaye DO Dec 19, 2016 10:34 am
[2016-12-19] MEDS: SODIUM CHLOR 0.9% 1000 ML INJ 1,000 ML IV SCH (11:50)
[2016-12-19 12:05] VITALS: BP 112/72; PULSE 94; RESP 21; TEMP 96.3; O2SAT 93
[2016-12-19 16:00] VITALS: BP 135/72; PULSE 117; RESP 20; TEMP 97.3; O2SAT 93
[2016-12-21] MEDS ORDERED: REMOVE OLD DURAGESIC (FENTANYL) PATCH T-DERMAL SCH (18:00)
== END 2016-12-19 17:47 | disposition home or self-care (01) ==
LOC: PHED 04:32 → PHEDA 07:13 → PH3B 08:01
PROVIDERS: ADMIT Hospitalist; ATTEND Hospitalist
DX: A41.9 Sepsis, unspecified organism (principal); R65.20 Severe sepsis without septic shock; N39.0 Urinary tract infection, site not specified; R00.0 Tachycardia, unspecified; E83.51 Hypocalcemia; R94.31 Abnormal electrocardiogram [ECG] [EKG]; L89.629 Pressure ulcer of left heel, unspecified stage; R11.10 Vomiting, unspecified; K92.2 Gastrointestinal hemorrhage, unspecified; R19.5 Other fecal abnormalities; I48.91 Unspecified atrial fibrillation; E11.9 Type 2 diabetes mellitus without complications; M54.9 Dorsalgia, unspecified; G89.29 Other chronic pain; Z85.46 Personal history of malignant neoplasm of prostate; Z85.830 Personal history of malignant neoplasm of bone; Z85.51 Personal history of malignant neoplasm of bladder; Z85.828 Personal history of other malignant neoplasm of skin; Z79.899 Other long term (current) drug therapy; Z79.82 Long term (current) use of aspirin; Z66 Do not resuscitate
CPT/HCPCS: 51702; 76937; 80048; 80053; 81001; 82948; 83605; 83690; 83735; 84155; 85014; 85018; 85025; 87086; 87641; 93005; 96374; 99285; G0378; J0610; J0696; J1815; J2405; J7030; Q9963